=== PATIENT | female | born 1985 | race Caucasian/White ===

== ENCOUNTER → 2016-09-30 | Outpatient (CLI) | payer BC, OTHER ==
[~2016-09-30] MED LIST: /LORA10TA GT; ACET50TA PO; ALPHAGAN P OS; AVELOX PO; BENADRYL; BENADRYL PO; CARA1TAB2 PO; CLEOCIN PO; CO Q100C10 PO; COQ-100C PO; DECADRON PO; DICL10TA PO; DICY20TA11 PO; DOCU10ELUD PO; EXCETAB80 PO; HOMATROPINE OS; HUMI40KI2 SC; IBUP600T26 PO; IBUP80TA PO; LORA10TA2 PO; MAAL600C PO; MAGN400T5 PO; MOTR200T44 PO; OMEPPOW18 PO; PEPC40SU PO; PERC5TAB6 PO; POTA540T PO; PRED FORTE OS; PRENTAB74 PO; PRIL40CA PO; RIBO100C PO; ROBA750T4 PO; SUDA30TA PO; TREX50TA PO; TREXIMET PO; VITA100L PO; VITAPRTA PO; ZITH250T PO; ZYRT10TA2 PO; claritin PO; colace PO; ibuprofen PO; potassium citrate PO
--- NOTE | 2016-09-30 08:37 | REP ---
MRI BRAIN WITHOUT CONTRAST: HISTORY: Migraine headaches. There are no areas of abnormal signal intensity in the brain. There is no intraparenchymal hemorrhage, infarct, mass or midline shift. The ventricular system is normal in appearance. There is no extracerebral collection. Minimal mucosal thickening is present in the right maxillary sinus. IMPRESSION: There is no intracranial lesion. Signed by Easton Harper MD 09/30/2016 08:38 A
== END ==
LOC: M RAD 07:13
PROVIDERS: ATTEND Family Medicine
DX: G43.909 Migraine, unspecified, not intractable, without status migrainosus (principal)

== ENCOUNTER 2016-10-15 12:41 | Emergency (ER) | payer OTHER ==
[2016-10-15] MEDS ORDERED: KETOROLAC 30 MG/ML VIAL (J1885) As Ordered ONE (13:06)
[2016-10-15] MEDS ORDERED: diphenhydrAMINE INJ 50MG/ML VIAL (J1200) As Ordered ONE (13:06)
[2016-10-15] MEDS ORDERED: ONDANSETRON 4MG/2ML VIAL (J2405) As Ordered ONE (13:06)
[2016-10-15] MEDS ORDERED: MORPHINE 4 MG/ML 1ML SYRINGE As Ordered ONE (14:00)
[2016-10-15] MEDS ORDERED: FIORICET TAB As Ordered ONE (14:03)
--- NOTE | 2016-10-15 15:05 | EDDOCDS ---
Nurse's Notes [facility] Name: Carole Faust Age: 31 yrs Sex: Female : 1985 Arrival Date: 10/15/2016 Time: 12:41 Bed 11 Private MD: Elliott Diagnosis: Migraine Presentation: 10/15 12:43 Presenting complaint: Patient states: migraine x 2 days with n/v and light sensitivity kc3 with no relief from Topamax and Maxalt. This patient has no additional risk factors. Adult Sepsis Screening: The patient does not have new or worsening altered mentation. Patient's respiratory rate is less than 22. Systolic blood pressure is greater than 100. Patient has a qSOFA score of 0- Negative Sepsis Screen. Suicide/Homicide risk assessment- the patient denies having any suicidal and/or homicidal ideations and does not present with any other emotional, behavioral or mental health complaints. Status: Patient is not a director of consulting services or dependent. Transition of care: patient was not received from another setting of care. 12:43 Acuity: PAWAN Level 3 kc3 12:43 Method Of Arrival: Walkin/Carried/Asstd kc3 Triage Assessment: 12:47 Headache History: This headache is like all previous headaches. General: Appears kc3 uncomfortable. Pain: Pain currently is 6 out of 10 on a pain scale. Pain began 2-3 days ago Also complains of nausea, photophobia, lightheaded. HIV screening NA for this visit Offered previously. Neurological: Level of Consciousness is awake, alert, obeys commands. 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 Co Q-10 200 mg oral chew twice a day 2. magnesium oxide 400 mg Oral tab daily 3. potassium citrate 5 mEq (540 mg) oral TbER daily 4. Prilosec 40 mg Oral cpDR 1 cap once daily 5. riboflavin (vitamin B2) 200 mg oral tab twice a day 6. Topamax 50 mg Oral tab daily 7. Maxalt oral oral as needed 8. Zoloft 50 mg Oral tab 1 tab once daily 9. Humira 40 mg/0.8 mL subcutaneous sykt every 2 weeks - PMHx: anklysoing spondyliosis; iritis; medullary sponge kindeys; Migraines; - PSHx: ; Tubal ligation (January 25, 2016); Sinus Surgery; Endoscopy, Lower; Endoscopy, Upper; - Social history: Smoking status: Patient states was never smoker of tobacco. No barriers to communication noted, The patient speaks fluent Libyan, Speaks appropriately for age. - : The pt / caregiver states he / she is not on anticoagulants. Home medication list is obtained from the patient. - Exposure Risk Screening:: None identified. Screenin:17 Screening information is obtained from the patient. Fall risk: No risks identified. jjr Assistance ADL's: requires no assistance with activities of daily living. Abuse/DV Screen: The patient / caregiver reports he/she is: not in a situation that causes fear, pain or injury. Nutritional screening: No deficits noted. Advance Directives: There is no active DNR order. home support is adequate. Assessment: 13:21 General: Appears in no apparent distress, well nourished, well groomed, Behavior is jjr appropriate for age. Pain: Location: left frontal area, left side of the back of head, left temporal area and left occipital area. Neurological: No deficits noted. Reports headache. Respiratory: No deficits noted. GI: Reports nausea. Derm: No deficits noted. 14:07 General: Appears in no apparent distress, reports continued pressure 5/10 to left side jjr of head and decreased nausea. 14:35 General: Appears in no apparent distress, pt has developed left anterior chest pressure jjr 3/10 with dull ache to left arm since last medication administration, provider aware , CANALES resolved. 15:02 General: Appears in no apparent distress, Behavior is appropriate for age. jjr Neurological: No deficits noted. Respiratory: No deficits noted. Derm: No deficits noted. Vital Signs: 12:42 BP 158 / 102; Pulse 80; Resp 16; Temp 97.8(O); Pulse Ox 98% on R/A; Weight 86.18 kg lr2 (R); Height 5 ft. 2 in. (157.48 cm) (R); Pain 6/10; 13:52 Pain 5/10; jjr 14:35 BP 136 / 70; Pulse 79; Resp 18; Pulse Ox 99% on R/A; Pain 3/10; jjr 15:01 BP 115 / 68; Pulse 60; Resp 16; Temp 97.8(O); Pulse Ox 99% on R/A; Pain 0/10; jjr 12:42 Body Mass Index 34.75 (86.18 kg, 157.48 cm) lr2 Vitals: 12:42 Log In Time: October 15, 2016 at 12:41. lr2 ED Course: 12:41 Patient visited by Nayely Bell. lr2 12:41 Elliott is Private Physician. lr2 12:41 Patient moved to Waiting lr2 12:42 Patient moved to Pre RCE lr2 12:44 Triage Initiated kc3 12:49 Patient moved to 11 kc3 12:53 [facility] As[facility]. ke 12:53 Patient visited by Chris Asif FNP. ke 12:53 Patient visited by Chris Asif FNP. ke 12:53 Edna Girard, RN is Primary Nurse. jjr 13:17 The patient / caregiver is instructed regarding the plan of care and ED course. jjr 13:17 Inserted saline lock: 20 gauge in left antecubital area. jjr 13:23 Patient visited by Edna Girard RN. jjr 13:53 Patient visited by Chris Asif FNP. ke 14:07 Patient visited by Edna Girard, WILDER. jjr 14:36 Patient visited by Edna Girard, WILDER. jjr 14:43 Elliott is Referral Physician. ke 15:02 Discontinued lock intact, bleeding controlled, pressure dressing applied, No jjr redness/swelling at site. No procedures done that require assistance. Administered Medications: 13:16 Drug: diphenhydrAMINE 50 mg [diphenhydramine 50 mg/mL injection solution (1 mL)] Route: jjr IVP; Site: left antecubital; 13:16 Drug: Ondansetron 4 mg [ondansetron HCl 2 mg/mL intravenous solution (2 mL)] Route: jjr IVP; Site: left antecubital; 13:52 Follow up: Response: Nausea is decreased jjr 13:16 Drug: ketorolac 30 mg [ketorolac 30 mg/mL (1 mL) injection solution (1 mL)] Route: IVP; jjr Site: left antecubital; 13:52 Follow up: Pain 5/10 Adult jjr 13:17 Drug: NS 0.9% 1000 ml [sodium chloride 0.9 % intravenous solution] Route: IV; Rate: jjr bolus; Site: left antecubital; 14:50 Follow up: IV Status: Completed infusion; IV Intake: 800ml jjr 14:07 Drug: Fioricet 1 tab-caps Route: PO; jjr 14:07 Drug: morphine 4 mg [morphine 4 mg/mL intravenous cartridge (1 mL)] Route: IVP; Site: jjr left antecubital; Intake: 14:50 IV: 800.00ml; Total: 800.00ml. jjr Order Results: There are currently no results for this order. Outcome: 14:43 Discharge ordered by Provider. jennifer 15:03 Discharge Assessment: patient administered narcotics - yes. Pt provided with safe jjr discharge. The following High Risk Discharge criteria are identified: None. Discharged to home ambulatory, with family. Condition: stable. Discharge instructions given to patient, Instructed on discharge instructions, follow up and referral plans. Demonstrated understanding of instructions. No special radiology studies were completed. Property sent home with patient. 15:03 Patient left the ED. jjr Signatures: Chris Asif, Edna Alvarez RN Stephanie Kay RN RN Nayely Leal MTDXiomara
--- NOTE | 2016-10-15 15:06 | EDDOCDS ---
Physician Documentation [facility] Name: Carole Faust Age: 31 yrs Sex: Female : 1985 Arrival Date: 10/15/2016 Time: 12:41 Bed 11 Private MD: Elliott Disposition: 10/15/16 14:43 Discharged to Home/Self Care. Impression: Migraine. - Condition is Stable. - Discharge Instructions: Migraine Headache. - Medication Reconciliation, Local Pharmacy Hours form. - Follow up: Elliott; When: As needed; Reason: Continuance of care. - Problem is an acute exacerbation. - Symptoms are unchanged. Historical: - Allergies: no known allergies; - Home Meds: 1. Co Q-10 200 mg oral chew twice a day 2. magnesium oxide 400 mg Oral tab daily 3. potassium citrate 5 mEq (540 mg) oral TbER daily 4. Prilosec 40 mg Oral cpDR 1 cap once daily 5. riboflavin (vitamin B2) 200 mg oral tab twice a day 6. Topamax 50 mg Oral tab daily 7. Maxalt oral oral as needed 8. Zoloft 50 mg Oral tab 1 tab once daily 9. Humira 40 mg/0.8 mL subcutaneous sykt every 2 weeks - PMHx: anklysoing spondyliosis; iritis; medullary sponge kindeys; Migraines; - PSHx: ; Tubal ligation (January 25, 2016); Sinus Surgery; Endoscopy, Lower; Endoscopy, Upper; - Social history: Smoking status: Patient states was never smoker of tobacco. No barriers to communication noted, The patient speaks fluent Cymraes, Speaks appropriately for age. - : The pt / caregiver states he / she is not on anticoagulants. Home medication list is obtained from the patient. - Exposure Risk Screening:: None identified. 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 2 in. (157.48 cm) (R); Pain 6/10; 13:52 Pain 5/10; jjr 14:35 BP 136 / 70; Pulse 79; Resp 18; Pulse Ox 99% on R/A; Pain 3/10; jjr 15:01 BP 115 / 68; Pulse 60; Resp 16; Temp 97.8(O); Pulse Ox 99% on R/A; Pain 0/10; jjr 12:42 Body Mass Index 34.75 (86.18 kg, 157.48 cm) lr2 MDM: 12:57 NS 0.9% 1000 ml IV at bolus once ordered. ke 12:57 IV Saline Lock ordered. ke 12:57 diphenhydrAMINE 50 mg IVP once ordered. ke 12:57 Ondansetron 4 mg IVP once ordered. ke 12:57 ketorolac 30 mg IVP once ordered. ke 13:53 Fioricet 1 tab-caps PO once ordered. ke 13:54 morphine 4 mg IVP once ordered. ke 13:58 Financial registration complete. lg Administered Medications: 13:16 Drug: diphenhydrAMINE 50 mg [diphenhydramine 50 mg/mL injection solution (1 mL)] Route: jjr IVP; Site: left antecubital; 13:16 Drug: Ondansetron 4 mg [ondansetron HCl 2 mg/mL intravenous solution (2 mL)] Route: jjr IVP; Site: left antecubital; 13:52 Follow up: Response: Nausea is decreased jjr 13:16 Drug: ketorolac 30 mg [ketorolac 30 mg/mL (1 mL) injection solution (1 mL)] Route: IVP; jjr Site: left antecubital; 13:52 Follow up: Pain 5/10 Adult jjr 13:17 Drug: NS 0.9% 1000 ml [sodium chloride 0.9 % intravenous solution] Route: IV; Rate: jjr bolus; Site: left antecubital; 14:50 Follow up: IV Status: Completed infusion; IV Intake: 800ml jjr 14:07 Drug: Fioricet 1 tab-caps Route: PO; jjr 14:07 Drug: morphine 4 mg [morphine 4 mg/mL intravenous cartridge (1 mL)] Route: IVP; Site: jjr left antecubital; Signatures: Elmer Black, Miguel Ángel Reg Chris Saini, AUTOMOTIVE PARTS INTERPRETER AUTOMOTIVE PARTS INTERPRETER Edna Turcios, RN RN jjr Stephanie Yu,RN RN kc3 BONNIE
--- NOTE | 2016-10-17 16:04 | EDDOCDS ---
Physician Documentation [facility] Name: Carole Faust Age: 31 yrs Sex: Female : 1985 Arrival Date: 10/15/2016 Time: 12:41 Bed 11 Private MD: Elliott Disposition: 10/15/16 14:43 Discharged to Home/Self Care. Impression: Migraine. - Condition is Stable. - Discharge Instructions: Migraine Headache. - Medication Reconciliation, Local Pharmacy Hours form. - Follow up: Elliott; When: As needed; Reason: Continuance of care. - Problem is an acute exacerbation. - Symptoms are unchanged. Historical: - Allergies: no known allergies; - Home Meds: 1. Co Q-10 200 mg oral chew twice a day 2. magnesium oxide 400 mg Oral tab daily 3. potassium citrate 5 mEq (540 mg) oral TbER daily 4. Prilosec 40 mg Oral cpDR 1 cap once daily 5. riboflavin (vitamin B2) 200 mg oral tab twice a day 6. Topamax 50 mg Oral tab daily 7. Maxalt oral oral as needed 8. Zoloft 50 mg Oral tab 1 tab once daily 9. Humira 40 mg/0.8 mL subcutaneous sykt every 2 weeks - PMHx: anklysoing spondyliosis; iritis; medullary sponge kindeys; Migraines; - PSHx: ; Tubal ligation (January 25, 2016); Sinus Surgery; Endoscopy, Lower; Endoscopy, Upper; - Social history: Smoking status: Patient states was never smoker of tobacco. No barriers to communication noted, The patient speaks fluent Cypriot, Speaks appropriately for age. - : The pt / caregiver states he / she is not on anticoagulants. Home medication list is obtained from the patient. - Exposure Risk Screening:: None identified. 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 2 in. (157.48 cm) (R); Pain 6/10; 13:52 Pain 5/10; jjr 14:35 BP 136 / 70; Pulse 79; Resp 18; Pulse Ox 99% on R/A; Pain 3/10; jjr 15:01 BP 115 / 68; Pulse 60; Resp 16; Temp 97.8(O); Pulse Ox 99% on R/A; Pain 0/10; jjr 12:42 Body Mass Index 34.75 (86.18 kg, 157.48 cm) lr2 MDM: 12:57 NS 0.9% 1000 ml IV at bolus once ordered. ke 12:57 IV Saline Lock ordered. ke 12:57 diphenhydrAMINE 50 mg IVP once ordered. ke 12:57 Ondansetron 4 mg IVP once ordered. ke 12:57 ketorolac 30 mg IVP once ordered. ke 13:53 Fioricet 1 tab-caps PO once ordered. ke 13:54 morphine 4 mg IVP once ordered. ke 13:58 Financial registration complete. lg 15:09 [facility] Payment Agreement was scanned into RedT and attached to record. lg 10/16 09:44 T-Sheet-- Draft Copy was scanned into RedT and attached to record. [facility] Administered Medications: 10/15 13:16 Drug: diphenhydrAMINE 50 mg [diphenhydramine 50 mg/mL injection solution (1 mL)] Route: jjr IVP; Site: left antecubital; 13:16 Drug: Ondansetron 4 mg [ondansetron HCl 2 mg/mL intravenous solution (2 mL)] Route: jjr IVP; Site: left antecubital; 13:52 Follow up: Response: Nausea is decreased jjr 13:16 Drug: ketorolac 30 mg [ketorolac 30 mg/mL (1 mL) injection solution (1 mL)] Route: IVP; jjr Site: left antecubital; 13:52 Follow up: Pain 5/10 Adult jjr 13:17 Drug: NS 0.9% 1000 ml [sodium chloride 0.9 % intravenous solution] Route: IV; Rate: jjr bolus; Site: left antecubital; 14:50 Follow up: IV Status: Completed infusion; IV Intake: 800ml jjr 14:07 Drug: Fioricet 1 tab-caps Route: PO; jjr 14:07 Drug: morphine 4 mg [morphine 4 mg/mL intravenous cartridge (1 mL)] Route: IVP; Site: jjr left antecubital; Signatures: Elmer Black, Miguel Ángel Reg lg Chris Asif, MOHSEN TONGP Edna Turcios RN RN jStephanie Vale RN RN kc3 Julianna Loyd The chart was reviewed and I authenticate all verbal orders and agree with the evaluation and treatment provided.Attachments: 15:09 [facility] Payment Agreement 10/16 09:44 T-Sheet-- Draft Copy [facility] [place] Chart Complete MTDD
--- NOTE | 2016-10-17 16:05 | EDDOCDS ---
Nurse's Notes [facility] Name: Carole Faust Age: 31 yrs Sex: Female : 1985 Arrival Date: 10/15/2016 Time: 12:41 Bed 11 Private MD: Elliott Diagnosis: Migraine Presentation: 10/15 12:43 Presenting complaint: Patient states: migraine x 2 days with n/v and light sensitivity kc3 with no relief from Topamax and Maxalt. This patient has no additional risk factors. Adult Sepsis Screening: The patient does not have new or worsening altered mentation. Patient's respiratory rate is less than 22. Systolic blood pressure is greater than 100. Patient has a qSOFA score of 0- Negative Sepsis Screen. Suicide/Homicide risk assessment- the patient denies having any suicidal and/or homicidal ideations and does not present with any other emotional, behavioral or mental health complaints. 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 Transition of care: patient was not received from another setting of care. 12:43 Acuity: PAWAN Level 3 kc3 12:43 Method Of Arrival: Walkin/Carried/Asstd kc3 Triage Assessment: 12:47 Headache History: This headache is like all previous headaches. General: Appears kc3 uncomfortable. Pain: Pain currently is 6 out of 10 on a pain scale. Pain began 2-3 days ago Also complains of nausea, photophobia, lightheaded. HIV screening NA for this visit Offered previously. Neurological: Level of Consciousness is awake, alert, obeys commands. 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 Co Q-10 200 mg oral chew twice a day 2. magnesium oxide 400 mg Oral tab daily 3. potassium citrate 5 mEq (540 mg) oral TbER daily 4. Prilosec 40 mg Oral cpDR 1 cap once daily 5. riboflavin (vitamin B2) 200 mg oral tab twice a day 6. Topamax 50 mg Oral tab daily 7. Maxalt oral oral as needed 8. Zoloft 50 mg Oral tab 1 tab once daily 9. Humira 40 mg/0.8 mL subcutaneous sykt every 2 weeks - PMHx: anklysoing spondyliosis; iritis; medullary sponge kindeys; Migraines; - PSHx: ; Tubal ligation (January 25, 2016); Sinus Surgery; Endoscopy, Lower; Endoscopy, Upper; - Social history: Smoking status: Patient states was never smoker of tobacco. No barriers to communication noted, The patient speaks fluent Zimbabwean, Speaks appropriately for age. - : The pt / caregiver states he / she is not on anticoagulants. Home medication list is obtained from the patient. - Exposure Risk Screening:: None identified. Screenin:17 Screening information is obtained from the patient. Fall risk: No risks identified. jjr Assistance ADL's: requires no assistance with activities of daily living. Abuse/DV Screen: The patient / caregiver reports he/she is: not in a situation that causes fear, pain or injury. Nutritional screening: No deficits noted. Advance Directives: There is no active DNR order. home support is adequate. Assessment: 13:21 General: Appears in no apparent distress, well nourished, well groomed, Behavior is jjr appropriate for age. Pain: Location: left frontal area, left side of the back of head, left temporal area and left occipital area. Neurological: No deficits noted. Reports headache. Respiratory: No deficits noted. GI: Reports nausea. Derm: No deficits noted. 14:07 General: Appears in no apparent distress, reports continued pressure 5/10 to left side jjr of head and decreased nausea. 14:35 General: Appears in no apparent distress, pt has developed left anterior chest pressure jjr 3/10 with dull ache to left arm since last medication administration, provider aware , CANALES resolved. 15:02 General: Appears in no apparent distress, Behavior is appropriate for age. jjr Neurological: No deficits noted. Respiratory: No deficits noted. Derm: No deficits noted. Vital Signs: 12:42 BP 158 / 102; Pulse 80; Resp 16; Temp 97.8(O); Pulse Ox 98% on R/A; Weight 86.18 kg lr2 (R); Height 5 ft. 2 in. (157.48 cm) (R); Pain 6/10; 13:52 Pain 5/10; jjr 14:35 BP 136 / 70; Pulse 79; Resp 18; Pulse Ox 99% on R/A; Pain 3/10; jjr 15:01 BP 115 / 68; Pulse 60; Resp 16; Temp 97.8(O); Pulse Ox 99% on R/A; Pain 0/10; jjr 12:42 Body Mass Index 34.75 (86.18 kg, 157.48 cm) lr2 Vitals: 12:42 Log In Time: October 15, 2016 at 12:41. lr2 ED Course: 12:41 Patient visited by Nayely Bell. lr2 12:41 Elliott is Private Physician. lr2 12:41 Patient moved to Waiting lr2 12:42 Patient moved to Pre RCE lr2 12:44 Triage Initiated kc3 12:49 Patient moved to 11 kc3 12:53 Chris Asif FNP is [facility]. ke 12:53 Patient visited by Chris Asif FNP. ke 12:53 Patient visited by Chris Asif FNP. ke 12:53 Edna Girard, RN is Primary Nurse. jjr 13:17 The patient / caregiver is instructed regarding the plan of care and ED course. jjr 13:17 Inserted saline lock: 20 gauge in left antecubital area. jjr 13:23 Patient visited by Edna Girard RN. jjr 13:53 Patient visited by Chris Asif FNP. ke 14:07 Patient visited by Edna Girard, WILDER. jjr 14:36 Patient visited by Edna Girard, WILDER. jjr 14:43 Elliott is Referral Physician. ke 15:02 Discontinued lock intact, bleeding controlled, pressure dressing applied, No jjr redness/swelling at site. No procedures done that require assistance. 15:09 [facility] Payment Agreement was scanned into XDC and attached to record. 10/16 09:44 T-Sheet-- Draft Copy was scanned into XDC and attached to record. [facility] Administered Medications: 10/15 13:16 Drug: diphenhydrAMINE 50 mg [diphenhydramine 50 mg/mL injection solution (1 mL)] Route: jjr IVP; Site: left antecubital; 13:16 Drug: Ondansetron 4 mg [ondansetron HCl 2 mg/mL intravenous solution (2 mL)] Route: jjr IVP; Site: left antecubital; 13:52 Follow up: Response: Nausea is decreased jjr 13:16 Drug: ketorolac 30 mg [ketorolac 30 mg/mL (1 mL) injection solution (1 mL)] Route: IVP; jjr Site: left antecubital; 13:52 Follow up: Pain 5/10 Adult jjr 13:17 Drug: NS 0.9% 1000 ml [sodium chloride 0.9 % intravenous solution] Route: IV; Rate: jjr bolus; Site: left antecubital; 14:50 Follow up: IV Status: Completed infusion; IV Intake: 800ml jjr 14:07 Drug: Fioricet 1 tab-caps Route: PO; jjr 14:07 Drug: morphine 4 mg [morphine 4 mg/mL intravenous cartridge (1 mL)] Route: IVP; Site: jjr left antecubital; Intake: 14:50 IV: 800.00ml; Total: 800.00ml. jjr Order Results: There are currently no results for this order. Outcome: 14:43 Discharge ordered by Provider. jennifer 15:03 Discharge Assessment: patient administered narcotics - yes. Pt provided with safe jjr discharge. The following High Risk Discharge criteria are identified: None. Discharged to home ambulatory, with family. Condition: stable. Discharge instructions given to patient, Instructed on discharge instructions, follow up and referral plans. Demonstrated understanding of instructions. No special radiology studies were completed. Property sent home with patient. 15:03 Patient left the ED. jjr Signatures: Elmer Black, Chris Dodson lg, VP SOFTWARE VP SOFTWARE Edna Turcios RN RN jjr Crane, Kelsi, RN RN [email or web address] Evert, Nayely Chatterjee Chart Complete MTDD
--- NOTE | 2016-10-17 16:05 | EDDOCDS ---
Physician Documentation [facility] Name: Carole Faust Age: 31 yrs Sex: Female : 1985 Arrival Date: 10/15/2016 Time: 12:41 Bed 11 Private MD: Elliott Disposition: 10/15/16 14:43 Discharged to Home/Self Care. Impression: Migraine. - Condition is Stable. - Discharge Instructions: Migraine Headache. - Medication Reconciliation, Local Pharmacy Hours form. - Follow up: Elliott; When: As needed; Reason: Continuance of care. - Problem is an acute exacerbation. - Symptoms are unchanged. Historical: - Allergies: no known allergies; - Home Meds: 1. Co Q-10 200 mg oral chew twice a day 2. magnesium oxide 400 mg Oral tab daily 3. potassium citrate 5 mEq (540 mg) oral TbER daily 4. Prilosec 40 mg Oral cpDR 1 cap once daily 5. riboflavin (vitamin B2) 200 mg oral tab twice a day 6. Topamax 50 mg Oral tab daily 7. Maxalt oral oral as needed 8. Zoloft 50 mg Oral tab 1 tab once daily 9. Humira 40 mg/0.8 mL subcutaneous sykt every 2 weeks - PMHx: anklysoing spondyliosis; iritis; medullary sponge kindeys; Migraines; - PSHx: ; Tubal ligation (January 25, 2016); Sinus Surgery; Endoscopy, Lower; Endoscopy, Upper; - Social history: Smoking status: Patient states was never smoker of tobacco. No barriers to communication noted, The patient speaks fluent Salvadorean, Speaks appropriately for age. - : The pt / caregiver states he / she is not on anticoagulants. Home medication list is obtained from the patient. - Exposure Risk Screening:: None identified. DIVER PUMPER: 10/15 12:48 LMP 10/07/2016 [id number] Vital Signs: 12:42 BP 158 / 102; Pulse 80; Resp 16; Temp 97.8(O); Pulse Ox 98% on R/A; Weight 86.18 kg / lr2 189.99 lbs (R); Height 5 ft. 2 in. (157.48 cm) (R); Pain 6/10; 13:52 Pain 5/10; jjr 14:35 BP 136 / 70; Pulse 79; Resp 18; Pulse Ox 99% on R/A; Pain 3/10; jjr 15:01 BP 115 / 68; Pulse 60; Resp 16; Temp 97.8(O); Pulse Ox 99% on R/A; Pain 0/10; jjr 12:42 Body Mass Index 34.75 (86.18 kg, 157.48 cm) lr2 MDM: 12:57 NS 0.9% 1000 ml IV at bolus once ordered. ke 12:57 IV Saline Lock ordered. ke 12:57 diphenhydrAMINE 50 mg IVP once ordered. ke 12:57 Ondansetron 4 mg IVP once ordered. ke 12:57 ketorolac 30 mg IVP once ordered. ke 13:53 Fioricet 1 tab-caps PO once ordered. ke 13:54 morphine 4 mg IVP once ordered. ke 13:58 Financial registration complete. lg 15:09 [facility] Payment Agreement was scanned into [employer] and attached to record. lg 10/16 09:44 T-Sheet-- Draft Copy was scanned into [employer] and attached to record. [facility] Administered Medications: 10/15 13:16 Drug: diphenhydrAMINE 50 mg [diphenhydramine 50 mg/mL injection solution (1 mL)] Route: jjr IVP; Site: left antecubital; 13:16 Drug: Ondansetron 4 mg [ondansetron HCl 2 mg/mL intravenous solution (2 mL)] Route: jjr IVP; Site: left antecubital; 13:52 Follow up: Response: Nausea is decreased jjr 13:16 Drug: ketorolac 30 mg [ketorolac 30 mg/mL (1 mL) injection solution (1 mL)] Route: IVP; jjr Site: left antecubital; 13:52 Follow up: Pain 5/10 Adult jjr 13:17 Drug: NS 0.9% 1000 ml [sodium chloride 0.9 % intravenous solution] Route: IV; Rate: jjr bolus; Site: left antecubital; 14:50 Follow up: IV Status: Completed infusion; IV Intake: 800ml jjr 14:07 Drug: Fioricet 1 tab-caps Route: PO; jjr 14:07 Drug: morphine 4 mg [morphine 4 mg/mL intravenous cartridge (1 mL)] Route: IVP; Site: jjr left antecubital; Signatures: Elmer Black, Miguel Ángel Reg lg Chris Asif, MOHSEN TONGP Edna Turcios RN RN jStephanie Vale RN RN [id number] Julianna Loyd The chart was reviewed and I authenticate all verbal orders and agree with the evaluation and treatment provided.Attachments: 15:09 [facility] Payment Agreement 10/16 09:44 T-Sheet-- Draft Copy [facility] Chart Complete MTDD
== END 2016-10-15 15:03 | disposition home or self-care (01) ==
LOC: M ED 12:41
DX: G43.909 Migraine, unspecified, not intractable, without status migrainosus (principal); M45.9 Ankylosing spondylitis of unspecified sites in spine; H20.9 Unspecified iridocyclitis; Q61.5 Medullary cystic kidney; Z79.899 Other long term (current) drug therapy
CPT/HCPCS: 96361; 96374; 96375; 99283; J1200; J1885; J2405

== ENCOUNTER 2016-11-07 09:23 | Emergency (ER) | payer OTHER ==
[~2016-11-07] VITALS: Ht 157.5 cm; Wt 88.5 kg
[2016-11-07] MEDS ORDERED: RIZA10TA2 PO (09:33)
[2016-11-07] MEDS ORDERED: TOPI1CAP4 PO (09:33)
[2016-11-07] MEDS ORDERED: OMEP40CA2 PO (09:33)
[2016-11-07] MEDS ORDERED: MECLIZINE 25 MG TABLET PO ONE (10:00)
[2016-11-07] MEDS ORDERED: NS 1,000 ML IV ONE (10:00)
[2016-11-07] MEDS ORDERED: ONDANSETRON 4MG/2ML VIAL (J2405) IV ONE ×2 (10:00→11:45)
[2016-11-07 10:21] LABS: BASO % 0.3 % (0.0-1.0); EOS # 0.1 K/mm3 (0.0-0.50); EOS % 2.2 % (0.0-3.0); LARGE UNSTAINED CELL # 0.1 K/mm3 (0.0-0.4); LARGE UNSTAINED CELL % 2.2 % (0.0-4.0); LYMPH # 1.5 K/mm3 (1.5-4.5); LYMPH % 29.2 % (24.0-44.0); MEAN CORPUSCULAR HEMOGLOBIN 27.5 pg (27.0-33.0); MEAN CORPUSCULAR HGB CONC 32.8 g/dl (32.0-36.5); MEAN CORPUSCULAR VOLUME 83.8 fl (80.0-96.0); MONO # 0.3 K/mm3 (0.0-0.8); MONO % 6.1 % (0.0-5.0); NEUTROPHILS % 60.1 % (36.0-66.0); PLATELET COUNT, AUTOMATED 319 k/mm3 (150-450); RED CELL DISTRIBUTION WIDTH 13.1 % (11.5-14.5); WHITE BLOOD COUNT 4.9 K/mm3 (4.0-10.0)
[2016-11-07 10:47] LABS: CONTROL LINE UCG INT CTR LINE PRESENT
[2016-11-07 10:47] LABS: ALBUMIN 3.5 GM/DL (3.2-5.2); ALBUMIN/GLOBULIN RATIO 0.92 (1.00-1.93); ALKALINE PHOSPHATASE 80 U/L (45-117); ALT/SGPT 33 U/L (12-78); ANION GAP 5 MEQ/L (8-16); AST/SGOT 15 U/L (15-37); BILIRUBIN,DIRECT < 0.1 MG/DL (0.0-0.2); BILIRUBIN,TOTAL 0.4 MG/DL (0.2-1.0); BLOOD UREA NITROGEN 16 MG/DL (7-18); CALCIUM LEVEL 8.2 MG/DL (8.5-10.1); CARBON DIOXIDE LEVEL 27 MEQ/L (21-32); CHLORIDE LEVEL 108 MEQ/L (98-107); CREATININE FOR GFR 0.68 MG/DL (0.55-1.02); GLOMERULAR FILTRATION RATE > 60.0 (>60); GLUCOSE, FASTING 86 MG/DL (70-105); POTASSIUM SERUM 3.9 MEQ/L (3.5-5.1); SODIUM LEVEL 140 MEQ/L (136-145); TOTAL PROTEIN 7.3 GM/DL (6.4-8.2)
--- NOTE | 2016-11-07 11:33 | REP ---
Clinical: Trauma. Technique: AP, lateral, bilateral oblique and sunrise views left knee. Findings: The osseous structures and joint spaces are intact and normal. There is no evidence for acute fracture or dislocation. No joint effusion is appreciated. Surrounding soft tissues are unremarkable. No subcutaneous emphysema or radiodense foreign body. Impression: No acute fracture or dislocation. Signed by Sourav Aponte MD 11/07/2016 11:24 A
--- NOTE | 2016-11-07 11:34 | REP ---
CT Head without contrast HISTORY: Syncope COMPARISON: 10/19/2010 There is no intraparenchymal hemorrhage, acute infarct, mass or midline shift. The ventricular system is normal in appearance. There is no extra cerebral collection. There is no fracture. Minimal mucosal thickening is present in the right ethmoid sinus. IMPRESSION: There is no intracranial lesion. Signed by Easton Harper MD 11/07/2016 11:26 A
[2016-11-07] MEDS ORDERED: diazePAM 5 MG TAB PO ONE (11:45)
[2016-11-07] MEDS ORDERED: VALI5TAB PO (12:12)
[2016-11-07] MEDS ORDERED: ZOFR4TAB3 PO (12:14)
[2016-11-07] MEDS ORDERED: MECL25CH PO (12:14)
[2016-11-07] MEDS ORDERED: AUGM875T27 PO (12:14)
[2016-11-07] MEDS ORDERED: AUGMENTIN 875 MG TAB PO ONE (12:15)
[2016-11-07 12:23] VITALS: BP 114/72
== END 2016-11-07 12:24 | disposition home or self-care (01) ==
LOC: M ED 10:03
DX: R55 Syncope and collapse (principal); R42 Dizziness and giddiness; H66.91 Otitis media, unspecified, right ear; G43.909 Migraine, unspecified, not intractable, without status migrainosus; I35.1 Nonrheumatic aortic (valve) insufficiency; K57.90 Diverticulosis of intestine, part unspecified, without perforation or abscess without bleeding; F41.9 Anxiety disorder, unspecified; F32.9 Major depressive disorder, single episode, unspecified; Q61.5 Medullary cystic kidney; H20.9 Unspecified iridocyclitis; M25.562 Pain in left knee; J30.9 Allergic rhinitis, unspecified; Z79.899 Other long term (current) drug therapy
CPT/HCPCS: 70450; 73564; 80048; 80076; 81001; 84703; 85025; 96361; 96374; 96376; 99284; J2405

== ENCOUNTER 2016-12-20 17:26 | Emergency (ER) | payer OTHER ==
[~2016-12-20] VITALS: Ht 157.5 cm; Wt 89.4 kg
[~2016-12-20 17:26] MED LIST changes: +AUGM875T27 PO; +MECL25CH PO; +OMEP40CA2 PO; +RIZA10TA2 PO; +TOPI1CAP4 PO; +VALI5TAB PO; +ZOFR4TAB3 PO
[2016-12-20] MEDS ORDERED: SERT-155 (17:35)
[2016-12-20] MEDS ORDERED: KETOROLAC 30 MG/ML VIAL (J1885) IV ONE (18:00)
[2016-12-20] MEDS ORDERED: NS 1,000 ML IV ONE (18:00)
[2016-12-20] MEDS ORDERED: ONDANSETRON 4MG/2ML VIAL (J2405) IV ONE (18:00)
[2016-12-20] MEDS ORDERED: TAMSULOSIN 0.4 MG CAP PO ONE (18:00)
[2016-12-20] MEDS: MORPHINE 2 MG/ML 1ML SYRINGE IV PRN ×2 (18:17→19:25)
[2016-12-20 18:20] LABS: BASO % 0.8 % (0.0-1.0); EOS # 0.2 K/mm3 (0.0-0.50); EOS % 2.5 % (0.0-3.0); LARGE UNSTAINED CELL # 0.2 K/mm3 (0.0-0.4); LARGE UNSTAINED CELL % 2.4 % (0.0-4.0); LYMPH # 1.8 K/mm3 (1.5-4.5); LYMPH % 26.9 % (24.0-44.0); MEAN CORPUSCULAR HEMOGLOBIN 27.3 pg (27.0-33.0); MEAN CORPUSCULAR HGB CONC 32.7 g/dl (32.0-36.5); MEAN CORPUSCULAR VOLUME 83.4 fl (80.0-96.0); MONO # 0.5 K/mm3 (0.0-0.8); MONO % 7.5 % (0.0-5.0); NEUTROPHILS # 3.8 K/mm3 (1.8-7.7); PLATELET COUNT, AUTOMATED 385 k/mm3 (150-450); RED CELL DISTRIBUTION WIDTH 13.4 % (11.5-14.5); WHITE BLOOD COUNT 6.3 K/mm3 (4.0-10.0)
--- NOTE | 2016-12-20 19:00 | REPUSA ---
Clinical history: Renal failure. Findings: The urinary bladder appears unremarkable. No urinary bladder masses are seen. The right kid davide measures 10.1 x 5.1 x 4.4 cm. The left kidney measures 10.9 x 5.4 x 5.1 cm. The kidneys demonst rate grossing normal echotexture and echogenicity. There is no evidence of hydronephrosis or nephrol ithiasis. No renal masses are seen. No free fluid is appreciated. Impression: Unremarkable ultrasound examination of the kidneys. Findings are grossly consistent with the CT examination of 03/26/2016.
[2016-12-20 19:06] LABS: ALBUMIN 3.6 GM/DL (3.2-5.2); ALBUMIN/GLOBULIN RATIO 1.06 (1.00-1.93); ALKALINE PHOSPHATASE 99 U/L (45-117); ALT/SGPT 57 U/L (12-78); ANION GAP 7 MEQ/L (8-16); AST/SGOT 46 U/L (15-37); BILIRUBIN,DIRECT 0.1 MG/DL (0.0-0.2); BILIRUBIN,TOTAL 0.3 MG/DL (0.2-1.0); BLOOD UREA NITROGEN 15 MG/DL (7-18); CALCIUM LEVEL 8.2 MG/DL (8.5-10.1); CARBON DIOXIDE LEVEL 25 MEQ/L (21-32); CHLORIDE LEVEL 106 MEQ/L (98-107); CREATININE FOR GFR 0.62 MG/DL (0.55-1.02); GLOMERULAR FILTRATION RATE > 60.0 (>60); GLUCOSE, FASTING 95 MG/DL (70-105); POTASSIUM SERUM 4.1 MEQ/L (3.5-5.1); SODIUM LEVEL 138 MEQ/L (136-145)
[2016-12-20] MEDS ORDERED: ISOVUE-370 76% 100ML VIAL (Q9967) As Ordered ONE (19:17)
--- NOTE | 2016-12-20 20:10 | REPUSA ---
CT of the abdomen and pelvis with contrast Clinical statement: Pain. Technique: Multiple axial CT images were obtained from the base of the lungs through the floor of the pelvis utilizing 5 mm axial slices after administration of oral and nonionic intravenous contrast. C oronal and sagittal reconstructions were also obtained. Comparison: 03/26/2016. Findings: Chest: The visualized lung bases are clear. Abdomen: The liver, spleen, pancreas, kidneys, gallbladder, and adrenal glands are unremarkable. The aorta is within normal limits. There is no evidence of abdominal lymphadenopathy or ascites. Pelvis: The bowel is unremarkable, with no obstructive or inflammatory changes. The appendix is krishna l. The urinary bladder is within normal limits. There is a simple right ovarian cyst measuring 2.0 x 2.5 cm. The other pelvic structures appear grossly intact. There is no evidence of pelvic lymphadenop athy or ascites. Bones: There are no suspicious osseous abnormalities seen. Impression: Simple right ovarian cyst. Otherwise unremarkable CT examination of the abdomen and pelvi s.
[2016-12-20 20:18] VITALS: BP 127/88
== END 2016-12-20 20:29 | disposition home or self-care (01) ==
LOC: M ED 17:50
DX: S39.012A Strain of muscle, fascia and tendon of lower back, initial encounter (principal); N83.291 Other ovarian cyst, right side; Z87.442 Personal history of urinary calculi; Q61.5 Medullary cystic kidney; J30.2 Other seasonal allergic rhinitis; Z79.899 Other long term (current) drug therapy
CPT/HCPCS: 74177; 76775; 80048; 80076; 81001; 83690; 85025; 96374; 96375; 99282; J1885; J2405; Q9967

== ENCOUNTER 2017-03-15 09:31 | Inpatient (IN) | payer BC, OTHER ==
[~2017-03-15] VITALS: Ht 157.5 cm; Wt 90.9 kg
[~2017-03-15 09:31] MED LIST changes: -AUGM875T27 PO; +AUGM875T28 PO; -CARA1TAB2 PO; +CARA1TAB6 PO; +IBUP-1022 PO; -IBUP600T26 PO; +MECL1CHW2 PO; -MECL25CH PO; +PERC5TAB12 PO; -PERC5TAB6 PO; +SERT-155
[2017-03-15] MEDS ORDERED: ZOLO100T PO (09:50)
[2017-03-15] MEDS ORDERED: IBUP80TA PO (09:50)
[2017-03-15] MEDS ORDERED: ROBA750T4 PO (09:50)
[2017-03-15] MEDS ORDERED: ONDANSETRON 4MG/2ML VIAL (J2405) IV ONE (10:30)
[2017-03-15] MEDS: MORPHINE 4 MG/ML 1ML SYRINGE IV PRN ×2 (10:34→11:54)
[2017-03-15 10:39] LABS: BASO % 0.5 % (0.0-1.0); EOS # 0.1 K/mm3 (0.0-0.50); EOS % 2.5 % (0.0-3.0); LARGE UNSTAINED CELL # 0.1 K/mm3 (0.0-0.4); LYMPH # 1.3 K/mm3 (1.5-4.5); LYMPH % 28.3 % (24.0-44.0); MEAN CORPUSCULAR HEMOGLOBIN 28.4 pg (27.0-33.0); MEAN CORPUSCULAR HGB CONC 34.1 g/dl (32.0-36.5); MEAN CORPUSCULAR VOLUME 83.2 fl (80.0-96.0); MONO # 0.3 K/mm3 (0.0-0.8); MONO % 6.2 % (0.0-5.0); NEUTROPHILS # 2.5 K/mm3 (1.8-7.7); NEUTROPHILS % 60.4 % (36.0-66.0); PLATELET COUNT, AUTOMATED 319 k/mm3 (150-450); RED CELL DISTRIBUTION WIDTH 13.2 % (11.5-14.5); WHITE BLOOD COUNT 4.2 K/mm3 (4.0-10.0)
[2017-03-15 10:56] LABS: CONTROL LINE HCG INT CTR LINE PRESENT
[2017-03-15 11:00] LABS: ANION GAP 6 MEQ/L (8-16); BLOOD UREA NITROGEN 12 MG/DL (7-18); CALCIUM LEVEL 8.5 MG/DL (8.5-10.1); CARBON DIOXIDE LEVEL 24 MEQ/L (21-32); CHLORIDE LEVEL 103 MEQ/L (98-107); CREATININE FOR GFR 0.73 MG/DL (0.55-1.02); GLOMERULAR FILTRATION RATE > 60.0 (>60); GLUCOSE, FASTING 86 MG/DL (70-105); POTASSIUM SERUM 3.8 MEQ/L (3.5-5.1); SODIUM LEVEL 133 MEQ/L (136-145)
[2017-03-15 11:09] LABS: ERYTHROCYTE SEDIMENTATION RATE 10 mm/hr (0-20)
[2017-03-15] MEDS ORDERED: KETOROLAC 30 MG/ML VIAL (J1885) IV ONE (12:30)
[2017-03-15] MEDS ORDERED: MORPHINE 4 MG/ML 1ML SYRINGE IV ONE (14:30)
[2017-03-15] MEDS ORDERED: NORCO, ANEXSIA 5/325MG TABLET (HYDROcodone/ACETAMINOPHEN) PO ONE (16:45)
--- NOTE | 2017-03-15 17:57 | REP ---
HISTORY: Urinary incontinence with back pain. There are no prior lumbar spine MRIs for comparison. Vertebral body height is normal. There is slight loss of disc hydrational signal and posterior disc space height at L5-S1 with all remaining discs being well hydrated and of normal appearing height throughout. The marrow signal is normal. There is no abnormal signal seen in the imaged portion of the spinal cord. The conus ends at L1. At L1-2 level there is no abnormality. There is no disc herniation, foraminal narrowing or central canal stenosis. At the L2-3 level, there is no abnormality. There is no disc herniation, foraminal narrowing or central canal stenosis. At the L3-4 level, there is no abnormality. There is no disc herniation, foraminal narrowing or central canal stenosis. At the L4-5 level, there is no abnormality. There is no disc herniation, foraminal narrowing or central canal stenosis. At the L5-S1 level, there is a slight broad-based annular bulge. There is no disc herniation, foraminal narrowing or central canal stenosis. IMPRESSION: Slight L5-S1 discogenic changes as described above. The examination is otherwise unremarkable. Signed by Sumit Carmen DO 03/16/2017 10:14 A
[2017-03-15] MEDS ORDERED: METAL LOCK LOOP XX ONE (18:18)
[2017-03-15] MEDS ORDERED: zolPIDEM TARTRATE 5 MG TAB PO PRN ×2 (20:30→20:45)
[2017-03-15] MEDS ORDERED: MORPHINE 2 MG/ML 1ML SYRINGE IV PRN (20:30)
[2017-03-15] MEDS ORDERED: DICY20TA PO (20:31)
[2017-03-15] MEDS ORDERED: TOPI50TA9 PO (20:31)
[2017-03-15] MEDS ORDERED: AMBI5TAB PO (20:31)
[2017-03-15] MEDS ORDERED: IBUPROFEN 800 MG TAB PO PRN (20:45)
[2017-03-15] MEDS ORDERED: RIZATRIPTAN BENZOATE 10 MG TAB PO PRN (20:45)
[2017-03-15] MEDS: PERCOCET 5MG/325MG TAB PO PRN (20:48)
[2017-03-15] MEDS: CARISOPRODOL 350 MG TAB PO SCH (20:48)
--- NOTE | 2017-03-15 22:03 | HPE ---
DATE OF ADMISSION: 03/15/2017 PRIMARY CARE PROVIDER: Dr. Gallagher ATTENDING PHYSICIAN: Dr. DUGGAN CHIEF COMPLAINT: Intractable lower back pain. HISTORY OF PRESENT ILLNESS: The patient is a 31-year-old white female with history of chronic lower back pain due to ankylosing spondylitis who presented to the emergency room (ER) due to intractable lower back pain. History is provided by herself as well as by review of chart. Per patient, she was diagnosed with ankylosing spondylitis in 2011. Since then, she is following up with potato seed cutter. She usually takes ibuprofen for chronic lower back pain and did not take any narcotics. In the last 2 days, she states she has worsening pain, which is persistent, located in her lower back. No radiation. The worst pain is about 9/10. It is a burning pain. Any movement makes pain worse. She also feels heaviness in her bilateral lower extremities. She lost her urine control twice at home. there is no injury prior to this.Today she even cannot move around and decided to come to the ER for further evaluation. In the ER, she underwent the MRI of her lumbar spine, which did not show any acute changes. There is no evidence of disc herniation or spinal cord compression. She was given intravenous (IV) morphine, Valium in the ER, and her pain went down to 5 from 9; however, she is not able to ambulate, so medicine is called for admission. REVIEW OF SYSTEMS: Denies fever. No chills. No headache. No double vision. No shortness of breath. No chest pain. No abdominal pain. No diarrhea. No constipation. She lost urine control twice but no focal numbness or weakness in her bilateral lower extremities. All other systems reviewed were negative. PAST MEDICAL HISTORY: 1. Ankylosing spondylitis diagnosed in 2011. 2. Positive for HLA-B27. 3. History of left iritis. 4. Medullary sponge kidneys with kidney stones. 5. Migraine headache. 6. Mild aortic insufficiency. PAST SURGICAL HISTORY: 1. section. 2. Tubal ligation. SOCIAL HISTORY: She is . She has three children. 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 Denies smoking, alcohol drinking, or illicit drug abuse. She is full code. FAMILY HISTORY: No family history of rheumatoid arthritis or ankylosing spondylitis. ALLERGIES: No known drug allergies. MEDICATIONS: - magnesium oxide 400 mg once a day - potassium citrate 540 once a day - Zyrtec 10 mg by mouth daily - Humira 40 mg subcutaneous every other week - omeprazole 40 mg by mouth daily - rizatriptan as needed - ibuprofen as needed - Zoloft 100 mg by mouth daily PHYSICAL EXAMINATION: VITAL SIGNS: Temperature 97.1, heart rate 66, respirations 16, blood pressure 120/71, oxygen saturation 98% on room air. GENERAL: She is awake, alert, oriented times three. She is lying down in the bed. She is in moderate acute distress. HEENT: Atraumatic. Pupils equal, round, reactive to light. No jaundice. Ears, nose, and throat normal. Mouth mucosa dry. NECK: No jugular venous distention (JVD). LUNGS: Clear. No wheezing. No crackles. HEART: S1, S2, regular. No murmur. ABDOMEN: Soft. Bowel sounds positive. Nontender. LOWER EXTREMITIES: No edema in bilateral lower extremities. SKIN: No rash. There is severe tenderness in her low back area and also any movement of her lower extremities makes the pain worse. NEUROLOGIC: Nonfocal. Normal sensate. Normal reflexes. Normal muscle strength. PSYCHIATRIC: No acute psychosis. LABORATORY STUDIES: Include the following: CBC with differential: WBC 4.2, hemoglobin and hematocrit 13.3/39, platelets 319. Sodium is 133, potassium 3.8, chloride 103, bicarbonate 24, BUN 12, creatinine 0.7, glucose 86. MRI of the lumbar spine did not show any acute disc herniation or spinal cord compression. IMPRESSION: 1. Intractable lower back pain. 2. History of ankylosing spondylitis. 3. History of migraine headache. 4. Depression. PLAN: Patient will be admitted to the medical/surgical floor. Will treat her symptomatically using pain medications and muscle relaxer. Will continue her regular medications and will get a physical therapy (PT)/occupational therapy (OT) evaluation. She has an appointment with her potato seed cutter next Monday. Hopefully she is able to be discharged prior to that appointment. BONNIE
[2017-03-15 22:30] VITALS: BP 118/77
[2017-03-15] MEDS: ONDANSETRON 4MG/2ML VIAL (J2405) IV PRN (23:04)
[2017-03-15] MEDS: CETIRIZINE (ZyrTEC) 10 MG TAB PO SCH (23:53)
[2017-03-15] MEDS: TOPIRAMATE (TopAMAX) 25 MG TAB PO SCH (23:53)
[2017-03-16] MEDS: PERCOCET 5MG/325MG TAB PO PRN ×3 (05:23→20:35)
[2017-03-16] MEDS: CARISOPRODOL 350 MG TAB PO SCH ×3 (07:57→20:34)
[2017-03-16] MEDS: OMEPRAZOLE 20 MG CAP PO SCH (07:57)
[2017-03-16] MEDS: MAGNESIUM OXIDE 400 MG TAB (MAG-OX) PO SCH (07:57)
[2017-03-16] MEDS: MORPHINE 2 MG/ML 1ML SYRINGE IV PRN ×2 (07:57→19:43)
[2017-03-16 07:58] LABS: MEAN CORPUSCULAR HEMOGLOBIN 27.2 pg (27.0-33.0); MEAN CORPUSCULAR HGB CONC 32.1 g/dl (32.0-36.5); RED CELL DISTRIBUTION WIDTH 13.1 % (11.5-14.5); WHITE BLOOD COUNT 5.7 K/mm3 (4.0-10.0)
[2017-03-16 08:00] VITALS: BP 109/66
[2017-03-16] MEDS: SERTRALINE 100 MG TAB PO SCH (08:00)
[2017-03-16 08:17] LABS: ANION GAP 5 MEQ/L (8-16); BLOOD UREA NITROGEN 16 MG/DL (7-18); CALCIUM LEVEL 8.5 MG/DL (8.5-10.1); CARBON DIOXIDE LEVEL 28 MEQ/L (21-32); CHLORIDE LEVEL 108 MEQ/L (98-107); GLOMERULAR FILTRATION RATE > 60.0 (>60); GLUCOSE, FASTING 85 MG/DL (70-105); POTASSIUM SERUM 4.1 MEQ/L (3.5-5.1); SODIUM LEVEL 141 MEQ/L (136-145)
[2017-03-16] MEDS: ENOXAPARIN 40 MG/0.4 ML SYRINGE (J1650) SC SCH (08:17)
[2017-03-16] MEDS ORDERED: PANTOPRAZOLE 40MG TAB (PROTONIX) PO SCH (09:00)
[2017-03-16] MEDS ORDERED: CALCIUM CARBONATE 500 MG CHEW U/D PO PRN (10:00)
[2017-03-16] MEDS: ONDANSETRON 4MG/2ML VIAL (J2405) IV PRN ×2 (11:17→20:34)
[2017-03-16] MEDS: IBUPROFEN 800 MG TAB PO SCH ×3 (12:16→23:00)
[2017-03-16] MEDS ORDERED: LORazepam 1 MG TAB PO PRN (14:00)
[2017-03-16] MEDS: predniSONE 20 MG TAB PO SCH (14:37)
--- NOTE | 2017-03-16 14:44 | IPN ---
DATE: 03/16/2017 SUBJECTIVE: The patient continues to complain of severe low back pain radiating down her left leg. She denies any further episodes of incontinence, paresthesias, weakness, chest pain, shortness of breath, fevers or chills. OBJECTIVE: VITAL SIGNS: Temperature 96.7, pulse 66, respiratory rate 18, blood pressure 109/66, oxygen saturation 98% on room air. GENERAL: She is a very pleasant tired appearing female laying flat in bed. She appears mildly uncomfortable. HEENT: Cranial nerves II through XII are grossly intact. She has moist mucous membranes. No elevation of central venous pressure. CARDIOVASCULAR EXAM: S1, S2 regular. RESPIRATORY EXAM: Clear. ABDOMINAL EXAM: Bowel sounds are present. The abdomen is soft. EXTREMITIES: No clubbing, cyanosis, or edema. She has decreased range of motion of the lower extremities secondary to pain. LABORATORY STUDIES: WBC 5.7, hemoglobin 12.8, platelet count 291. Chemistry panel: Sodium 141, potassium 4.1, chloride 108, bicarb 28, BUN 16, creatinine 0.8, hCG is negative. CRP is less than 3 and ESR is 10. Urinalysis is fairly unremarkable. She did have a lumbar spine MRI which revealed slight L5-S1 discogenic changes, but the examination was otherwise unremarkable. At L5-S1 there is a slight broad based annular bulge. There is no disc herniation. ASSESSMENT/PLAN: This is a 31-year-old female with a history of ankylosing spondylitis presenting with acute on chronic back pain. PROBLEMS: 1. Acute on chronic back pain. The patient does have a history of ankylosing spondylitis with chronic low back pain, worse in the mornings, usually improving throughout the day; however, over the last 24-48 hours has progressively worsened to the point where she has had falls and it is to painful for her to walk. I did contact her test and balance engineer provider, Dr. Gallegos's office, . I did speak with him regarding her presentation, her unremarkable MRI and inflammatory markers. They also did share my suspicion that this could still be a flare-up of her ankylosing spondylitis. She is currently on Humira and ibuprofen as needed. At this time, after my discussion with her test and balance engineer, we will start her on prednisone 40 mg by mouth daily for five days then drop her to 30 mg for five days, then 20 mg for five days, and 10 mg for five days then stop. I have also placed the other possibility if this is not her ankylosing spondylitis it could be radicular pain associated with spasms. She will also be receiving Ativan 1 mg every 6 hours as needed for spasms. We will place her on ibuprofen 800 mg every 6 hours around the clock. She will also continue with Percocet one to two tablets every 4 hours as needed for pain, soma 350 mg three times a day, and morphine 1 mg IV every 2 hours as needed for severe pain. I have also encouraged her to work with physical therapy and I have requested a pain management consult to see if she may benefit from an SI joint injection or possibly and epidural or steroid injection. I do suspect is will take 24-48 hours before these interventions can show for an adequate response. 2. Migraines headaches. Continue with Maxalt. The patient is on Topamax. 3. Insomnia. Continue with Ambien. 4. Seasonal allergies. The patient is on Zyrtec. 5. Mood disorder. The patient is on Zoloft. 6. Gastroesophageal reflux disease (GERD). The patient is on omeprazole and Tums. 7. Deep vein thrombosis (DVT) prophylaxis. The patient is on Lovenox. DISPOSITION: Will continue to monitor her progress very closely over the next 24-48 hours.
[2017-03-16 16:00] VITALS: BP 116/65
--- NOTE | 2017-03-16 17:38 | CR ---
DATE OF CONSULTATION: 03/16/2017 CHIEF COMPLAINT: Low back pain. REFERRING PHYSICIAN: Dr. Perea HISTORY OF THE PRESENT ILLNESS: Carole is a 31-year-old female who was admitted yesterday due to severe intractable low back pain and bilateral leg pain, history of ankylosing spondylosis. On Humira a biweekly, last dose 4 days ago. Rating pain level as an 8/10. Pain is aggravated by side to side motion. States that she was able to tolerate getting up for a shower today, although it was painful and painful to walk. Has been on prednisone in the past for flare up and pain but never specifically for back pain. MRI of the lumbosacral (LS) spine done on admission yesterday does not show any significant pathology. Prednisone was started per rheumatology consult and first dose was given 3 hours ago. Denies recent fever or illness. Denies sudden weight loss. Denies bowel or bladder incontinence, although she did state that she had an episode of urinary incontinence prior to admission. PAST MEDICAL HISTORY: 1. Ankylosing spondylitis diagnosed in 2011. 2. Positive for HLA-B27. 3. History of left iritis. 4. Medullary sponge kidneys with kidney stones. 5. Migraine headache. 6. Mild aortic insufficiency. PAST SURGICAL HISTORY: section. Tubal ligation. SOCIAL HISTORY: She is . She has three children. 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 Denies smoking, alcohol or illicit drug use. FAMILY HISTORY: Noncontributory. ALLERGIES: No known drug allergies. PHYSICAL EXAMINATION Lying in bed. Appears comfortable. Affect is flat. Vital Signs: Temperature 96.7, pulse 66, respirations 18, blood pressure 109/66,oxygen saturation is 98% Cardiac: S1, S2. Normal rate and rhythm. Respiratory: Lung sounds clear. Respirations: Nonlabored. Inspection of spine: Tenderness with deep palpation over the LS axis and lumbar facet area bilaterally. Positive for increased pain with palpation over bilateral sacroiliac joint region. Neuromuscular: Normal sensation to light touch bilateral upper and lower extremities. Able to move legs freely, although when she elevates her legs laying on her back, this increases low back pain. DIAGNOSTIC DATA: MRI of the LS spine, 03/15/2017 - reviewed. ASESSMENT: 1. Acute low back pain. 2. Ankylosing spondylitis. PLAN: After discussing the potential risks of infection, being on Humira and having an injection, the patient is not interested in doing injections and would like to see prednisone, that was started a few hours ago, will help her. I would continue her current regimen of pain medications. Please contact us with any questions or concerns. Copy To: Dr. Perea
[2017-03-16] MEDS ORDERED: LORazepam 0.5 MG TAB PO PRN (18:12)
[2017-03-16 20:00] VITALS: BP 122/71
[2017-03-16] MEDS: CETIRIZINE (ZyrTEC) 10 MG TAB PO SCH (20:34)
[2017-03-16] MEDS: TOPIRAMATE (TopAMAX) 25 MG TAB PO SCH (20:34)
[2017-03-17] VITALS: BP 119/71
[2017-03-17] MEDS: IBUPROFEN 800 MG TAB PO SCH (05:58)
[2017-03-17 08:00] VITALS: BP 112/75
[2017-03-17] MEDS: ENOXAPARIN 40 MG/0.4 ML SYRINGE (J1650) SC SCH (09:00)
[2017-03-17] MEDS: predniSONE 20 MG TAB PO SCH (09:16)
[2017-03-17] MEDS: OMEPRAZOLE 20 MG CAP PO SCH (09:17)
[2017-03-17] MEDS: MAGNESIUM OXIDE 400 MG TAB (MAG-OX) PO SCH (09:17)
[2017-03-17] MEDS: SERTRALINE 100 MG TAB PO SCH (09:18)
[2017-03-17] MEDS: CARISOPRODOL 350 MG TAB PO SCH (09:18)
[2017-03-17] MEDS ORDERED: PRED10TA2 PO (10:17)
[2017-03-17] MEDS ORDERED: PERCOCET PO (10:17)
[2017-03-17] MEDS ORDERED: CARI350T PO (10:19)
--- NOTE | 2017-03-18 16:19 | DSES ---
DATE OF ADMISSION: 03/15/2017 DATE OF DISCHARGE: 03/17/2017 DISCHARGE DIAGNOSIS: Acute on chronic back pain. SECONDARY DIAGNOSIS: 1. Ankylosing spondylitis. 2. Migraine headaches. 3. Insomnia. 4. Seasonal allergies. 5. Mood disorder. 6. Gastroesophageal reflux disease. 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 She has chronic low back pain, which is usually worse in the morning. Gets better throughout the day; however, of late it had not been getting better throughout the day. She is currently on Humira and ibuprofen as needed for ankylosing spondylitis. She follows with bath mixer, Dr. Gallegos, in [place]. She presented to the emergency room with intractable back pain and was admitted. She was seen in consultation by Blank Xiao of the pain clinic, who did offer the patient injection to see if it would help; however, the patient declined this. I did personally reach out to the patient's rheumatology provider's office, who suggested that despite having negative inflammatory markers, she could certainly be having a flare of her ankylosing spondylitis, and as such we did start her on prednisone 40 mg daily for 5 days, then to be tapered 30 mg for 5 days, 20 mg for 5 days, 10 mg for 5 days, and then stop. During her stay she also intermittently received Ativan for spasms. She was also receiving Percocet. She currently does not need any intravenous (IV) narcotics. She was also receiving Soma while here. At this time, the patient has been cleared by physical therapy. SUBJECTIVE: The patient tells me that she is feeling better today. She would like to go home. She tells me that her pain is improving. She denies paralysis, weakness, bladder or bowel incontinence. OBJECTIVE: VITAL SIGNS: Temperature 98.5, pulse 79, respiratory rate 16, blood pressure (BP) 112/75, oxygen saturation 99% on room air. GENERAL: She is a very pleasant female lying in bed at a 30-degree angle. She does not appear to be in acute distress. She is more bright and more conversant. Appears to be more comfortable than previous days. HEENT: Cranial nerves II-XII are grossly intact. She has moist mucous membranes. No elevation in central venous pressure (CVP). CARDIOVASCULAR: S1, S2, regular. RESPIRATORY: Clear. ABDOMEN: Benign. Bowel sounds present. The abdomen is soft. EXTREMITIES: No clubbing, cyanosis, or edema. LABORATORY STUDIES: WBC 5.7, hemoglobin 12.8, platelet count 291. Chemistry panel: Sodium 141, potassium 4.1, chloride 108, bicarbonate 28, BUN 16, creatinine 0.8. IMAGING: The patient did have a lumbar spine MRI while she was here, which revealed slight L5-S1 discogenic changes. Examination otherwise unremarkable. ASSESSMENT AND PLAN: 1. This is a 31-year-old female with what is likely acute on chronic back pain secondary to anklyosing spondylitis. She has improved quite quickly with the current regimen of standing nonsteroidal anti-inflammatory drugs (NSAIDs), as needed Percocets, and prednisone. She will be discharged on this regimen as well. She has followup with her bath mixer's office on 03/20/2017, this morning, where after my conversation with them they are considering increasing her dosage of Humira. She has been cleared by physical therapy. She is improving. I did recommend she be off work until at least followup on Monday and have provided her with a prescription indicating as such. She will be on a tapering course of prednisone. 2. Migraines. Continue with Maxalt and Topamax. 3. Insomnia. Continue with Ambien. 4. Seasonal allergies. Continue with Zyrtec. 5. Mood disorder. Continue with Zoloft. 6. Gastroesophageal reflux disease. Continue with omeprazole and Tums. 7. Deep vein thrombosis (DVT) prophylaxis. Patient has been on Lovenox. DISPOSITION: The patient is being discharged home to the care of her . She is cleared by physical therapy. Her clinical status is improved. She is to followup with her primary care physician (PCP) within 7 days and her bath mixer on Monday. Her activity is off work until followup 03/20/2017, otherwise as tolerated. Her diet is as prior to admission. She is to return to the ER if her symptoms worsen. MEDICATIONS AT THE TIME OF DISCHARGE: - Percocet 5/325 one tablet every 4 hours as needed for pain, maximum 6 tablets per day, 24 tablets. - prednisone, taper as directed - Zyrtec 10 mg at bedtime - dicyclomine 20 mg before meals as needed for pain - Humira pen 40 mg subcutaneous every 2 weeks - ibuprofen 800 mg every 6 hours as needed for pain - magnesium oxide 400 mg daily - omeprazole 40 mg daily - potassium citrate 540 mg at bedtime - rizatriptan 10 mg as needed for headaches - sertraline 100 mg daily - topiramate 50 mg at bedtime - Ambien 5 mg at bedtime as needed for sleep Greater than 30 minutes spent organizing disposition.
== END 2017-03-17 11:45 | disposition home or self-care (01) | DRG 346 ==
LOC: M ED 09:31 → M ED INP 20:21 → M PED 22:20
PROVIDERS: ADMIT Hospitalist; ATTEND Internal Medicine
DX: M45.9 Ankylosing spondylitis of unspecified sites in spine (principal); F39 Unspecified mood [affective] disorder; G47.00 Insomnia, unspecified; K21.9 Gastro-esophageal reflux disease without esophagitis; G43.909 Migraine, unspecified, not intractable, without status migrainosus; Z79.899 Other long term (current) drug therapy; Z79.4 Long term (current) use of insulin

== ENCOUNTER → 2017-03-21 | Outpatient (CLI) | payer BC ==
[~2017-03-21] MED LIST changes: +AMBI5TAB PO; +CARI350T PO; +DICY20TA PO; +PERCOCET PO; +PRED10TA2 PO; +TOPI50TA9 PO; +ZOLO100T PO
--- NOTE | 2017-03-22 01:43 | REP ---
Clinical: Lower back pain. Technique: AP, cephalic angled, bilateral oblique views of the pelvis and sacroiliac joints. Findings: The bilateral sacroiliac joints are symmetric and normal for age. No significant periarticular sclerosis or fusion. Surrounding soft tissues are unremarkable. Impression: Normal age appropriate bilateral sacroiliac joints. Signed by Sourav Aponte MD 03/22/2017 01:35 A
--- NOTE | 2017-03-22 01:47 | REP ---
Clinical: Back pain. Technique: Frontal view of the pelvis with neutral and frog lateral views of the bilateral hips. Findings: Pelvis and bilateral hips appear relatively normal for age. Very subtle increased sclerosis to the acetabular roof noted bilaterally and consistent with age-related changes. No overt osteoarthritic degenerative changes are appreciated. No acute fracture dislocation. Surrounding soft tissues normal. Impression: Mild age-related changes to the bilateral hips. Signed by Sourav Aponte MD 03/22/2017 01:39 A
--- NOTE | 2017-03-22 01:57 | REP ---
Clinical: Back pain. Technique: AP and lateral views of the cervical, thoracic, lumbar spine. Findings: Straightening of normal lordosis in the cervical spine with mild/moderate degenerative changes at the C3-4 to C5-6 levels is suggested. Thoracic spine demonstrates normal alignment and kyphosis. Lumbar spine demonstrates normal alignment and lordosis. Impression: Mild/moderate degenerative changes in the cervical spine. Clinical correlation is recommended and MRI should be considered if the patient remains symptomatic. Signed by Sourav Aponte MD 03/22/2017 01:49 A
== END ==
LOC: M RAD 10:14
PROVIDERS: ATTEND Physician Assistant Medical
DX: M54.5 Low back pain (principal)

== ENCOUNTER → 2017-03-23 | Outpatient (CLI) | payer BC ==
--- NOTE | 2017-03-23 15:47 | REP ---
LEFT BREAST ULTRASOUND: 03/23/2017. Clinical history: Palpable lump about the noon position periareolar region. The patient states it is about the size of a grape. Comparison: Diagnostic digital left mammogram today. Findings: Sonographic evaluation of the left breast from the 11-o'clock to 1-o'clock position in the upper periareolar region in the region of her palpable finding. Some heterogeneous echogenic dense breast tissue is noted, but there is no discrete mass, cyst, architectural distortion or dilated duct. No abnormal skin thickening noted. Impression: 1. BIRADS ACR category 1 negative. No sonographic evidence of mass, cyst, architectural distortion or other finding. Please see mammogram report this date for final assessment and recommendation. Signed by Florentino Thakkar MD 03/23/2017 06:36 P
--- NOTE | 2017-03-23 15:51 | REP ---
DIAGNOSTIC DIGITAL LEFT MAMMOGRAM: 03/23/2017. Comparison: Left breast ultrasound today. Clinical history: Palpable lump left breast for the past 3 weeks about the noon position periareolar region toward the outer half. She has a family history of paternal aunts with breast cancer in their 40s. She has no history of breast surgery or previous problems. Standard two-view mammography with a triangle marker placed by the patient at the site of her reported palpable finding. Additional spot magnified CC and MLO views over this region and magnified true MLO view also of the anterior breast in this region are provided. There are scattered fibroglandular elements in the breast parenchyma in a pattern and distribution that might obscure a lesion. There are no dominant masses, areas of architectural distortion, skin thickening, clustered microcalcifications or other secondary signs of malignancy. Spot magnified views confirm the absence of any discrete mammographically definable mass, architectural distortion or clustered microcalcifications. Likewise, the true ML view is unremarkable covering this same region. The left breast ultrasound this date showed no sonographic abnormality in this region. Impression: 1. BIRADS ACR category 1 negative. No mammographic or sonographic evidence of malignancy. There are no findings in the region of her reported palpable abnormality. 2. Recommend followup mammography at age 40 or sooner if clinically warranted. This negative report should not deter further evaluation of a dominant or suspicious physical finding. This mammogram was interpreted with the aid of an FDA-approved computer-aided detection system. A. Negative x-ray reports should not delay biopsy if a dominant or clinically suspicious mass is present. B. Four to eight percent of cancers are not identified by x-ray. C. Adenosis and dense breasts may obscure an underlying neoplasm The patient states she/he had a clinical breast exam in March 2017. The patient letter being requested is M2. BI-RADS/ACR category 1 mammogram. Negative. Routine annual screening mammography (for women over age 40). Signed by Florentino Thakkar MD 03/23/2017 06:37 P
== END ==
LOC: M RAD 13:24
PROVIDERS: ATTEND Obstetrics & Gynecology
DX: N63 Unspecified lump in breast (principal)
CPT/HCPCS: 76642; G0206

== ENCOUNTER → 2017-07-01 | Outpatient (REF) | payer BC | LOC: M LAB REF 16:36 | PROVIDERS: ATTEND Physician Assistant Medical | DX: K58.0 Irritable bowel syndrome with diarrhea (principal) ==

== ENCOUNTER → 2017-10-05 | Outpatient (CLI) | payer BC ==
[2017-10-05 09:27] LABS: BASO % 0.5 % (0.0-1.0); EOS # 0.1 10^3/uL (0.0-0.50); EOS % 1.7 % (0.0-3.0); HEMATOCRIT 39.3 % (36.0-47.0); HEMOGLOBIN 12.6 g/dl (12.0-16.0); IMMATURE GRANULOCYTE % 0.2 % (0-3.0); LYMPH # 1.5 10^3/uL (1.5-4.5); LYMPH % 24.9 % (24.0-44.0); MEAN CORPUSCULAR HEMOGLOBIN 26.8 pg (27.0-33.0); MEAN CORPUSCULAR HGB CONC 32.1 g/dl (32.0-36.5); MEAN CORPUSCULAR VOLUME 83.6 fl (80.0-96.0); MONO # 0.6 10^3/uL (0.0-0.8); MONO % 9.4 % (0.0-5.0); NEUTROPHILS # 3.8 10^3/uL (1.8-7.7); NEUTROPHILS % 63.3 % (36.0-66.0); PLATELET COUNT, AUTOMATED 367 10^3/uL (150-450); RED CELL DISTRIBUTION WIDTH 12.8 % (11.5-14.5); WHITE BLOOD COUNT 5.9 10^3/uL (4.0-10.0)
[2017-10-05 09:53] LABS: ALBUMIN 3.9 GM/DL (3.2-5.2); ALBUMIN/GLOBULIN RATIO 1.18 (1.00-1.93); ALKALINE PHOSPHATASE 65 U/L (45-117); ALT/SGPT 34 U/L (12-78); ANION GAP 8 MEQ/L (8-16); AST/SGOT 19 U/L (7-37); BILIRUBIN,TOTAL 0.4 MG/DL (0.2-1.0); BLOOD UREA NITROGEN 26 MG/DL (7-18); CALCIUM LEVEL 8.9 MG/DL (8.5-10.1); CARBON DIOXIDE LEVEL 25 MEQ/L (21-32); CHLORIDE LEVEL 108 MEQ/L (98-107); CREATININE FOR GFR 0.76 MG/DL (0.55-1.30); FREE T4 0.96 NG/DL (0.76-1.46); GLOMERULAR FILTRATION RATE > 60.0 (>60); GLUCOSE, FASTING 87 MG/DL (70-100); POTASSIUM SERUM 4.3 MEQ/L (3.5-5.1); SODIUM LEVEL 141 MEQ/L (136-145); TOTAL PROTEIN 7.2 GM/DL (6.4-8.2)
[2017-10-05 10:35] LABS: TOTAL 25(OH) VITAMIN D 23.8 NG/ML (30.0-100.0)
== END ==
LOC: M RAD 08:00
DX: E04.2 Nontoxic multinodular goiter (principal)

== ENCOUNTER → 2017-10-26 | Outpatient (CLI) | payer BC | LOC: M RAD 15:57 | DX: M50.223 Other cervical disc displacement at C6-C7 level (principal); M25.78 Osteophyte, vertebrae | CPT/HCPCS: 72141 ==

== ENCOUNTER 2017-11-21 08:10 | Outpatient (RCR) | payer BC | END 2017-12-18 | LOC: M PT 08:10 | DX: Z51.89 Encounter for other specified aftercare (principal); M54.2 Cervicalgia | CPT/HCPCS: 97012 ==

== ENCOUNTER 2017-12-19 08:58 | Outpatient (RCR) | payer BC | END 2018-01-18 | LOC: M PT 12-21 11:45 | DX: Z51.89 Encounter for other specified aftercare (principal); M54.2 Cervicalgia ==

== ENCOUNTER 2018-01-24 11:21 | Outpatient (RCR) | payer BC | END 2018-02-17 | LOC: M PT 01-26 12:57 | DX: Z51.89 Encounter for other specified aftercare (principal); M54.2 Cervicalgia | CPT/HCPCS: 97010 ==

== ENCOUNTER → 2018-02-07 | Outpatient (CLI) | payer BC | LOC: M RAD 14:24 | DX: R10.2 Pelvic and perineal pain (principal) ==

== ENCOUNTER → 2018-03-27 | Outpatient (CLI) | payer BC | LOC: M RAD 12:25 | DX: R10.2 Pelvic and perineal pain (principal); D25.1 Intramural leiomyoma of uterus | CPT/HCPCS: 76856 ==

== ENCOUNTER 2018-04-18 18:44 | Emergency (ER) | payer BC ==
[2018-04-18] MEDS ORDERED: ONDANSETRON 4MG/2ML VIAL (J2405) As Ordered (19:07)
[2018-04-18] MEDS: NS 500 ML IV (19:13)
[2018-04-18] MEDS: MORPHINE 4 MG/ML 1ML VIAL/SYRINGE (J2270) IV (19:13)
[2018-04-18] MEDS: KETOROLAC 30 MG/ML VIAL (J1885) IV (19:15)
[2018-04-18 19:32] LABS: BASO % 0.4 % (0.0-1.0); EOS # 0.1 10^3/uL (0.0-0.50); EOS % 1.8 % (0.0-3.0); HEMATOCRIT 39.1 % (36.0-47.0); HEMOGLOBIN 12.5 g/dl (12.0-15.5); IMMATURE GRANULOCYTE % 0.3 % (0-3.0); LYMPH # 2.3 10^3/uL (1.5-4.5); LYMPH % 29.3 % (24.0-44.0); MEAN CORPUSCULAR HEMOGLOBIN 27.4 pg (27.0-33.0); MEAN CORPUSCULAR VOLUME 85.6 fl (80.0-96.0); MONO # 0.7 10^3/uL (0.0-0.8); MONO % 8.4 % (0.0-5.0); NEUTROPHILS # 4.7 10^3/uL (1.8-7.7); NEUTROPHILS % 59.8 % (36.0-66.0); PLATELET COUNT, AUTOMATED 366 10^3/uL (150-450); RED BLOOD COUNT 4.57 10^6/uL (4.00-5.40); WHITE BLOOD COUNT 7.9 10^3/uL (4.0-10.0)
[2018-04-18 19:50] LABS: ANION GAP 6 MEQ/L (8-16); BLOOD UREA NITROGEN 15 MG/DL (7-18); CALCIUM LEVEL 8.2 MG/DL (8.5-10.1); CARBON DIOXIDE LEVEL 25 MEQ/L (21-32); CHLORIDE LEVEL 110 MEQ/L (98-107); CREATININE FOR GFR 0.85 MG/DL (0.55-1.30); GLOMERULAR FILTRATION RATE > 60.0 (>60); GLUCOSE, FASTING 82 MG/DL (70-100); POTASSIUM SERUM 3.5 MEQ/L (3.5-5.1); SODIUM LEVEL 141 MEQ/L (136-145)
[2018-04-18 20:01] LABS: KETONE, URINE AUTO RFX TRACE mg/dL (NEGATIVE); LEUKOCYTE ESTERASE UR AUTO RFX NEGATIVE (NEGATIVE); MUCUS, URINE RFX SMALL (NEGATIVE); NITRITE, URINE AUTO RFX NEGATIVE (NEGATIVE); RBC, URINE AUTO RFX TNTC /HPF (0-3); SPECIFIC GRAVITY UR AUTO RFX 1.027 (1.002-1.035); SQUAM EPITHELIAL CELL UR AURFX 1 /HPF (0-6); WBC, URINE AUTO RFX 4 /HPF (0-3)
[2018-04-18] MEDS ORDERED: MORPHINE 2 MG/ML 1ML SYRINGE (J2270) As Ordered (20:38)
[2018-04-18] MEDS: MORPHINE 2 MG/ML 1ML SYRINGE (J2270) IV (20:43)
[2018-04-18] MEDS: NORCO 5/325MG TABLET (BULK FOR ED) PO (21:15)
== END 2018-04-18 21:28 | disposition home or self-care (01) ==
LOC: M ED 18:44
DX: N39.0 Urinary tract infection, site not specified (principal); R31.9 Hematuria, unspecified; N20.0 Calculus of kidney; N23 Unspecified renal colic; Z87.442 Personal history of urinary calculi; G43.909 Migraine, unspecified, not intractable, without status migrainosus; I35.1 Nonrheumatic aortic (valve) insufficiency; Q61.5 Medullary cystic kidney; Z79.899 Other long term (current) drug therapy
CPT/HCPCS: J2270

== ENCOUNTER 2018-04-25 09:06 | Day surgery (SDC) | payer BC ==
[~2018-04-25 09:06] MED LIST changes: -/LORA10TA GT; -ACET50TA PO; -ALPHAGAN P OS; -AMBI5TAB PO; -AUGM875T28 PO; -AVELOX PO; -BENADRYL; -BENADRYL PO; -CARA1TAB6 PO; -CARI350T PO; -CLEOCIN PO; -CO Q100C10 PO; -COQ-100C PO; -DECADRON PO; -DICL10TA PO; -DICY20TA PO; -DICY20TA11 PO; -DOCU10ELUD PO; -EXCETAB80 PO; -HOMATROPINE OS; -HUMI40KI2 SC; -IBUP-1022 PO; -IBUP80TA PO; +LIDOCAINE 1% MDV 20ML VIAL SQ; -LORA10TA2 PO; -MAAL600C PO; -MAGN400T5 PO; -MECL1CHW2 PO; -MOTR200T44 PO; -OMEP40CA2 PO; -OMEPPOW18 PO; -PEPC40SU PO; -PERC5TAB12 PO; -PERCOCET PO; -POTA540T PO; -PRED FORTE OS; -PRED10TA2 PO; -PRENTAB74 PO; -PRIL40CA PO; -RIBO100C PO; -RIZA10TA2 PO; -ROBA750T4 PO; -SERT-155; -SUDA30TA PO; -TOPI1CAP4 PO; -TOPI50TA9 PO; -TREX50TA PO; -TREXIMET PO; -VALI5TAB PO; -VITA100L PO; -VITAPRTA PO; -ZITH250T PO; -ZOFR4TAB3 PO; -ZOLO100T PO; -ZYRT10TA2 PO; -claritin PO; -colace PO; -ibuprofen PO; -potassium citrate PO
[2018-04-25] MEDS ORDERED: LIDOCAINE 2% INJ 100 MG/5 ML SDV (FOR ANES.) As Ordered (09:38)
[2018-04-25] MEDS ORDERED: ROCURONIUM BROMIDE 50 MG/5 ML VIAL As Ordered ×2 (09:38→11:38)
[2018-04-25] MEDS ORDERED: KETOROLAC 60 MG/2 ML VIAL (J1885) As Ordered ×2 (09:38→11:35)
[2018-04-25] MEDS ORDERED: ONDANSETRON 4MG/2ML VIAL (J2405) As Ordered ×2 (09:38→11:36)
[2018-04-25] MEDS ORDERED: dexameTHASONE 4 MG/ML 1ML VIAL (J1100) As Ordered ×3 (09:38→11:35)
[2018-04-25] MEDS ORDERED: NEOSTIGMINE 10 MG/10 ML VIAL (J2710) As Ordered ×2 (09:38→11:35)
[2018-04-25] MEDS ORDERED: GLYCOPYRROLATE INJ 0.2 MG/ML 2 ML VIAL As Ordered ×2 (09:38→11:35)
[2018-04-25] MEDS ORDERED: MIDAZOLAM INJ 2 MG/2 ML VIAL (J2250) As Ordered (09:38)
[2018-04-25] MEDS ORDERED: PROPOFOL 200 MG/20 ML VIAL As Ordered (09:38)
[2018-04-25] MEDS ORDERED: fentaNYL 100 MCG/2 ML INJECTION (J3010) As Ordered ×2 (09:38→11:11)
[2018-04-25 09:44] LABS: HEMATOCRIT 39.3 % (36.0-47.0); HEMOGLOBIN 12.4 g/dl (12.0-15.5); MEAN CORPUSCULAR HEMOGLOBIN 26.8 pg (27.0-33.0); MEAN CORPUSCULAR HGB CONC 31.6 g/dl (32.0-36.5); MEAN CORPUSCULAR VOLUME 84.9 fl (80.0-96.0); PLATELET COUNT, AUTOMATED 333 10^3/uL (150-450); RED BLOOD COUNT 4.63 10^6/uL (4.00-5.40); RED CELL DISTRIBUTION WIDTH 13.2 % (11.5-14.5); WHITE BLOOD COUNT 4.9 10^3/uL (4.0-10.0)
[2018-04-25 09:54] LABS: CONTROL LINE UCG INT CTR LINE PRESENT; URINE PREG TEST NEGATIVE (NEGATIVE)
[2018-04-25] MEDS: SCOPOLAMINE 1MG TRANSDERMAL PATCH TOP (10:00)
[2018-04-25] MEDS ORDERED: LR 1,000 ML IV ×2 (10:00→13:00)
[2018-04-25 10:03] LABS: ANION GAP 8 MEQ/L (8-16); BLOOD UREA NITROGEN 13 MG/DL (7-18); CALCIUM LEVEL 8.7 MG/DL (8.5-10.1); CARBON DIOXIDE LEVEL 22 MEQ/L (21-32); CHLORIDE LEVEL 112 MEQ/L (98-107); CREATININE FOR GFR 0.87 MG/DL (0.55-1.30); GLOMERULAR FILTRATION RATE > 60.0 (>60); GLUCOSE, FASTING 79 MG/DL (70-100); POTASSIUM SERUM 4.3 MEQ/L (3.5-5.1); SODIUM LEVEL 142 MEQ/L (136-145)
[2018-04-25] MEDS: ACETAMINOPHEN 650 MG SUPP As Ordered (10:13)
[2018-04-25] MEDS ORDERED: SCOPOLAMINE 1MG TRANSDERMAL PATCH As Ordered (10:13)
[2018-04-25] MEDS: ACETAMINOPHEN 650 MG SUPP PR (10:58)
[2018-04-25] MEDS ORDERED: HYDROmorphone HCL 2 MG/ML 1ML VIAL (J1170) As Ordered (11:13)
[2018-04-25] MEDS ORDERED: METOCLOPRAMIDE INJ 10MG/2ML VIAL (J2765) As Ordered (11:36)
[2018-04-25] MEDS: FLUORESCEIN 10% (100MG/ML) 5 ML VIAL As Ordered (11:48)
[2018-04-25] MEDS: SIMETHICONE 80 MG CHEW TAB PO ×2 (12:00→17:48)
[2018-04-25] MEDS: BUPIVACAINE/EPIN 0.25% 30 ML VIAL As Ordered (12:09)
[2018-04-25] MEDS ORDERED: ONDANSETRON 4MG/2ML VIAL (J2405) IV (13:00)
[2018-04-25] MEDS ORDERED: fentaNYL 100 MCG/2 ML INJECTION (J3010) IV (13:00)
[2018-04-25] MEDS: LR 1,000 ML IV (13:00)
[2018-04-25] MEDS: NORCO, ANEXSIA 5/325MG TABLET (HYDROcodone/ACETAMINOPHEN) PO (13:28)
[2018-04-25] MEDS: PERCOCET 5MG/325MG TAB PO (15:27)
[2018-04-25] MEDS: IBUPROFEN 800 MG TAB PO (17:48)
== END 2018-04-25 18:15 | disposition home or self-care (01) ==
LOC: M SDC 09:06 → M PED 13:50 → M SDC 18:15
DX: R10.2 Pelvic and perineal pain (principal); N92.1 Excessive and frequent menstruation with irregular cycle; E04.9 Nontoxic goiter, unspecified; K57.30 Diverticulosis of large intestine without perforation or abscess without bleeding; K58.9 Irritable bowel syndrome, unspecified; M12.9 Arthropathy, unspecified; M45.9 Ankylosing spondylitis of unspecified sites in spine; F32.9 Major depressive disorder, single episode, unspecified; G43.909 Migraine, unspecified, not intractable, without status migrainosus; H20.9 Unspecified iridocyclitis; R06.83 Snoring; Q61.5 Medullary cystic kidney; J30.9 Allergic rhinitis, unspecified; Z79.899 Other long term (current) drug therapy; Z98.51 Tubal ligation status
CPT/HCPCS: 58571

== ENCOUNTER 2018-05-21 16:00 | Emergency (ER) | payer BC ==
[2018-05-21] MEDS: NS 1,000 ML IV (16:45)
[2018-05-21 16:48] LABS: HEMATOCRIT 37.3 % (36.0-47.0); HEMOGLOBIN 11.9 g/dl (12.0-15.5); MEAN CORPUSCULAR HEMOGLOBIN 27.2 pg (27.0-33.0); MEAN CORPUSCULAR HGB CONC 31.9 g/dl (32.0-36.5); MEAN CORPUSCULAR VOLUME 85.2 fl (80.0-96.0); PLATELET COUNT, AUTOMATED 342 10^3/uL (150-450); RED BLOOD COUNT 4.38 10^6/uL (4.00-5.40); RED CELL DISTRIBUTION WIDTH 12.9 % (11.5-14.5); WHITE BLOOD COUNT 9.8 10^3/uL (4.0-10.0)
[2018-05-21 17:13] LABS: CONTROL LINE HCG INT CTR LINE PRESENT; HCG, SERUM QUALITATIVE NEGATIVE (NEGATIVE)
[2018-05-21 17:16] LABS: ALBUMIN 4.3 GM/DL (3.2-5.2); ALBUMIN/GLOBULIN RATIO 1.43 (1.00-1.93); ALKALINE PHOSPHATASE 56 U/L (45-117); ALT/SGPT 22 U/L (12-78); ANION GAP 8 MEQ/L (8-16); AST/SGOT 19 U/L (7-37); BILIRUBIN,DIRECT 0.1 MG/DL (0.0-0.2); BILIRUBIN,TOTAL 0.3 MG/DL (0.2-1.0); BLOOD UREA NITROGEN 14 MG/DL (7-18); CALCIUM LEVEL 9.4 MG/DL (8.5-10.1); CARBON DIOXIDE LEVEL 24 MEQ/L (21-32); CHLORIDE LEVEL 108 MEQ/L (98-107); CREATININE FOR GFR 0.79 MG/DL (0.55-1.30); GLOMERULAR FILTRATION RATE > 60.0 (>60); GLUCOSE, FASTING 86 MG/DL (70-100); LIPASE 186 U/L (73-393); POTASSIUM SERUM 4.1 MEQ/L (3.5-5.1); SODIUM LEVEL 140 MEQ/L (136-145); TOTAL PROTEIN 7.3 GM/DL (6.4-8.2)
[2018-05-21] MEDS ORDERED: ISOVUE-370 76% 100ML VIAL (Q9967) As Ordered (17:36)
[2018-05-21] MEDS: CEPHALEXIN 500 MG CAP PO (18:17)
== END 2018-05-21 18:33 | disposition home or self-care (01) ==
LOC: M ED 16:00
DX: L03.316 Cellulitis of umbilicus (principal); I35.1 Nonrheumatic aortic (valve) insufficiency; G43.909 Migraine, unspecified, not intractable, without status migrainosus; M45.9 Ankylosing spondylitis of unspecified sites in spine; J30.2 Other seasonal allergic rhinitis; Z87.442 Personal history of urinary calculi; Z79.899 Other long term (current) drug therapy
CPT/HCPCS: Q9967

== ENCOUNTER → 2018-07-10 | Outpatient (CLI) | payer BC ==
[2018-07-10 16:29] LABS: BASO % 0.3 % (0.0-1.0); EOS # 0.1 10^3/uL (0.0-0.50); EOS % 1.7 % (0.0-3.0); HEMATOCRIT 37.9 % (36.0-47.0); HEMOGLOBIN 12.2 g/dl (12.0-15.5); IMMATURE GRANULOCYTE % 0.5 % (0-3.0); LYMPH % 30.5 % (24.0-44.0); MEAN CORPUSCULAR HEMOGLOBIN 27.3 pg (27.0-33.0); MEAN CORPUSCULAR HGB CONC 32.2 g/dl (32.0-36.5); MEAN CORPUSCULAR VOLUME 84.8 fl (80.0-96.0); MONO # 0.5 10^3/uL (0.0-0.8); MONO % 7.5 % (0.0-5.0); NEUTROPHILS # 3.8 10^3/uL (1.8-7.7); NEUTROPHILS % 59.5 % (36.0-66.0); PLATELET COUNT, AUTOMATED 358 10^3/uL (150-450); RED BLOOD COUNT 4.47 10^6/uL (4.00-5.40); RED CELL DISTRIBUTION WIDTH 12.7 % (11.5-14.5); WHITE BLOOD COUNT 6.4 10^3/uL (4.0-10.0)
[2018-07-10 16:38] LABS: ALT/SGPT 24 U/L (12-78); AST/SGOT 15 U/L (7-37); C REACTIVE PROTEIN QUANTITATIV < 0.30 MG/DL (0.00-0.30); CREATININE FOR GFR 0.91 MG/DL (0.55-1.30); GLOMERULAR FILTRATION RATE > 60.0 (>60)
[2018-07-10 19:33] LABS: ERYTHROCYTE SEDIMENTATION RATE 12 mm/hr (0-20)
== END ==
LOC: M LAB 15:51
DX: Z51.81 Encounter for therapeutic drug level monitoring (principal); Z79.899 Other long term (current) drug therapy
CPT/HCPCS: 84460

== ENCOUNTER → 2018-07-10 | Outpatient (CLI) | payer BC ==
[2018-07-10 16:48] LABS: FREE T4 1.03 NG/DL (0.76-1.46)
[2018-07-11 06:03] LABS: THYROGLOBULIN ANTIBODY 35.6 U/ML (<60.0); THYROID PEROXIDASE ANTIBODY 28.6 U/ML (<60.0)
== END ==
LOC: M LAB 15:46
DX: E04.1 Nontoxic single thyroid nodule (principal)
CPT/HCPCS: 84443

== ENCOUNTER 2018-08-17 12:33 | Emergency (ER) | payer BC ==
[~2018-08-17] VITALS: Ht 157.5 cm; Wt 86.4 kg
[~2018-08-17 12:33] MED LIST changes: +/LORA10TA GT; +ACET50TA PO; +ALPHAGAN P OS; +AMBI5TAB PO; +AUGM875T28 PO; +AVELOX PO; +BENADRYL; +BENADRYL PO; +CARA1TAB6 PO; +CARI1TAB7 PO; +CIPR-249 PO; +CLEOCIN PO; +CO Q100C10 PO; +COQ-100C PO; +DECADRON PO; +DICL10TA PO; +DICY20TA PO; +DICY20TA11 PO; +DIFL150T PO; +DOCU10ELUD PO; +EXCETAB80 PO; +HOMATROPINE OS; +HUMI40KI2 SC; +HYDR-3713 PO; +IBUP-1022 PO; +IBUP1TAB7 PO; +IBUP80TA PO; +KEFL500C17 PO; +KETO10TAB PO; -LIDOCAINE 1% MDV 20ML VIAL SQ; +LORA-243 PO; +MAAL600C PO; +MAGN400T5 PO; +MECL1CHW2 PO; +MOTR200T44 PO; +OMEP40CA2 PO; +OMEPPOW18 PO; +PEPC40SU PO; +PERC5TAB12 PO; +PERCOCET PO; +POTA540T PO; +PRED FORTE OS; +PRED10TA2 PO; +PRENTAB74 PO; +PRIL40CA PO; +RIBO100C PO; +RIZA10TA2 PO; +ROBA750T4 PO; +SERT-155; +SIME80TA PO; +SUDA30TA PO; +TOPI1CAP4 PO; +TOPI50TA9 PO; +TRAZ-163 PO; +TREX50TA PO; +TREXIMET PO; +VALI5TAB PO; +VITA100L PO; +VITAPRTA PO; +ZITH250T PO; +ZOFR4TAB14 PO; +ZOLO100T PO; +ZYRT10CA5 PO; +[UNRECOGNIZED DRUG - OTHER] SC; +claritin PO; +colace PO; +ibuprofen PO; +potassium citrate PO
[2018-08-17] MEDS ORDERED: KETOROLAC 60 MG/2 ML VIAL (J1885) IM ONE (13:00)
[2018-08-17] MEDS ORDERED: PERCOCET 5MG/325MG TAB PO ONE (15:00)
[2018-08-17] MEDS ORDERED: diazePAM 5 MG TAB PO ONE (15:00)
--- NOTE | 2018-08-17 16:30 | REP ---
MRI of the lumbar spine MRI study: History: Low back pain. Groin numbness. Injury in a fall August 04. Technique: Sagittal and axial T1 and T2-weighted scans are acquired in the usual fashion with and without fat saturation. Sequences include spin echo, turbo spin-echo, and STIR imaging sequences. MRI findings: There is a multilocular cyst seen incompletely in the left adnexa on axial and sagittal images. This measures 2.6 cm in diameter and is compatible with a left ovarian cyst. No other significant extra spinal finding. Cortical and medullary bone signal intensity are normal. Vertebral body heights are preserved. Alignment is normal. Conus medullaris is normal in position and appearance at L1. There is mild degenerative disc desiccation at the L5-S1 level. Other lumbar disc spaces are preserved in height and signal intensity. Axial and sagittal images at each disc level in the lumbar spine show no evidence of focal disc protrusion, central canal stenosis, or neural foraminal encroachment. There is minimal facet hypertrophy bilaterally L5-S1. Impression: Mild degenerative disc and facet hypertrophy bilaterally L5-S1. No disc protrusion is seen. No central canal stenosis or neural foraminal narrowing. There is a 2.6 cm cystic area partially visualized in the left ovary. Electronically Signed by Carlos Arciniega MD 08/17/2018 05:04 P
[2018-08-17 17:35] VITALS: BP 126/75
--- NOTE | 2018-08-18 07:35 | ED PDOC ---
Post-Departure Follow-Up radiology rpeor tfaxed to Julianna Membreno MD Aug 18, 2018 07:35
== END 2018-08-17 17:57 | disposition home or self-care (01) ==
LOC: M ED 12:33
DX: M43.07 Spondylolysis, lumbosacral region (principal); M45.9 Ankylosing spondylitis of unspecified sites in spine; J30.89 Other allergic rhinitis; Z79.899 Other long term (current) drug therapy
CPT/HCPCS: 72148; 81001; 96372; 99283; J1885

== ENCOUNTER → 2018-11-02 | Outpatient (CLI) | payer BC ==
[2018-11-02 15:56] LABS: BASO % 0.8 % (0.0-1.0); EOS # 0.1 10^3/uL (0.0-0.50); EOS % 2.1 % (0.0-3.0); HEMOGLOBIN 12.2 g/dl (12.0-15.5); LYMPH # 1.6 10^3/uL (1.5-4.5); LYMPH % 33.7 % (24.0-44.0); MEAN CORPUSCULAR HEMOGLOBIN 27.8 pg (27.0-33.0); MEAN CORPUSCULAR HGB CONC 32.1 g/dl (32.0-36.5); MEAN CORPUSCULAR VOLUME 86.6 fl (80.0-96.0); MONO # 0.5 10^3/uL (0.0-0.8); MONO % 9.5 % (0.0-5.0); NEUTROPHILS # 2.5 10^3/uL (1.8-7.7); NEUTROPHILS % 53.7 % (36.0-66.0); PLATELET COUNT, AUTOMATED 333 10^3/uL (150-450); RED BLOOD COUNT 4.39 10^6/uL (4.00-5.40); WHITE BLOOD COUNT 4.7 10^3/uL (4.0-10.0)
[2018-11-02 16:06] LABS: ALT/SGPT 18 U/L (12-78); C REACTIVE PROTEIN QUANTITATIV < 0.30 MG/DL (0.00-0.30); CREATININE FOR GFR 0.84 MG/DL (0.55-1.30); GLOMERULAR FILTRATION RATE > 60.0 (>60)
[2018-11-02 16:46] LABS: ERYTHROCYTE SEDIMENTATION RATE 6 mm/hr (0-20)
== END ==
LOC: M LAB 15:22
PROVIDERS: ATTEND Nurse Practitioner
DX: M46.99 Unspecified inflammatory spondylopathy, multiple sites in spine (principal)

== ENCOUNTER 2018-11-27 12:13 | Emergency (ER) | payer BC ==
[~2018-11-27] VITALS: Ht 157.5 cm; Wt 79.1 kg
[~2018-11-27 12:13] MED LIST changes: -/LORA10TA GT; -ACET50TA PO; -DOCU10ELUD PO; +DOCU5LIQ PO; +LORA-385 GT; +MAPA500T17 PO; +MECL1CHW PO; -MECL1CHW2 PO
[2018-11-27] MEDS ORDERED: KETOROLAC 30 MG/ML VIAL (J1885) IV ONE (13:00)
[2018-11-27] MEDS ORDERED: ONDANSETRON 4MG/2ML VIAL (J2405) IV ONE (13:00)
[2018-11-27] MEDS ORDERED: NS 1,000 ML IV ONE (13:00)
[2018-11-27 13:16] LABS: BASO % 0.6 % (0.0-1.0); EOS # 0.2 10^3/uL (0.0-0.50); EOS % 2.3 % (0.0-3.0); HEMATOCRIT 42.3 % (36.0-47.0); HEMOGLOBIN 13.4 g/dl (12.0-15.5); LYMPH # 1.9 10^3/uL (1.5-4.5); LYMPH % 26.5 % (24.0-44.0); MEAN CORPUSCULAR HEMOGLOBIN 27.3 pg (27.0-33.0); MEAN CORPUSCULAR HGB CONC 31.7 g/dl (32.0-36.5); MEAN CORPUSCULAR VOLUME 86.2 fl (80.0-96.0); MONO # 0.7 10^3/uL (0.0-0.8); MONO % 10.2 % (0.0-5.0); NEUTROPHILS # 4.3 10^3/uL (1.8-7.7); NEUTROPHILS % 59.6 % (36.0-66.0); PLATELET COUNT, AUTOMATED 389 10^3/uL (150-450); RED BLOOD COUNT 4.91 10^6/uL (4.00-5.40); WHITE BLOOD COUNT 7.3 10^3/uL (4.0-10.0)
[2018-11-27 13:28] LABS: BLOOD UREA NITROGEN 14 MG/DL (7-18); CALCIUM LEVEL 9.2 MG/DL (8.5-10.1); CARBON DIOXIDE LEVEL 24 MEQ/L (21-32); CHLORIDE LEVEL 108 MEQ/L (98-107); CREATININE FOR GFR 0.88 MG/DL (0.55-1.30); GLOMERULAR FILTRATION RATE > 60.0 (>60); GLUCOSE, FASTING 89 MG/DL (70-100); POTASSIUM SERUM 4.2 MEQ/L (3.5-5.1); SODIUM LEVEL 138 MEQ/L (136-145)
[2018-11-27] MEDS ORDERED: DILUENT IV ONE (13:45)
[2018-11-27] MEDS ORDERED: NACL IV ONE (13:45)
[2018-11-27] MEDS ORDERED: KETAMINE IV ONE (13:45)
--- NOTE | 2018-11-27 13:45 | REP ---
Renal ultrasound: The patient has history of medullary sponge kidney and renal calculi and complains of left flank pain and renal colic: The right kidney measures 10.6 x 6.3 x 4.5 cm. The left kidney measures 11.2 x 5.6 x 4.6 cm. The kidneys are normal size. There is no hydronephrosis on the right on the left. There is no hydroureter on the right on the left. There are two nonobstructive calculi in the lower pole left kidney measuring 6 x 3 mm and measuring 8 x 8 mm. Bladder: The the bladder is nondistended and cannot be further evaluated. Impression: There are two nonobstructive calculi in the lower pole of the left kidney. There is no hydronephrosis on the right on the left. There are no renal solid masses or cysts. The bladder is nondistended and cannot be further evaluated at this time. Electronically Signed by Efraín Parrish MD 11/27/2018 01:37 P
[2018-11-27] MEDS ORDERED: ONDA4TAB6 PO (14:55)
[2018-11-27 14:59] VITALS: BP 107/54
== END 2018-11-27 15:19 | disposition home or self-care (01) ==
LOC: M ED 12:13
DX: N20.0 Calculus of kidney (principal); Z79.899 Other long term (current) drug therapy
CPT/HCPCS: 76775; 80048; 81001; 85025; 96365; 96375; 99284; J1885; J2405

== ENCOUNTER → 2018-11-30 | Outpatient (CLI) | payer BC ==
[~2018-11-30] MED LIST changes: +ONDA4TAB6 PO
--- NOTE | 2018-11-30 08:08 | REP ---
CT of the abdomen pelvis without IV or bowel contrast for renal calculus: Comparison is to 05/21/2018. There is a nonobstructive 6 ml calculus in the left renal pelvis, unchanged. There is a 4 ml nonobstructive calculus in the left renal pelvis, not present previously. There is a 3 mm calculus in the left renal parenchyma at the mid pole, not present previously. There are no right renal calculi. There are no ureteral calculi on the right or the left. There is a tiny phlebolith in the left adnexa, unchanged. There is no hydronephrosis or hydroureter. There are no bladder calculi. The previous adnexal cyst is no longer identified. There is a hysterectomy. This is unchanged. The visualized lung unger are unremarkable. The hepatic parenchyma, gallbladder, pancreas, spleen, adrenals, abdominal aorta, bowel and mesentery are unremarkable. Pelvis: The appendix is unremarkable. There is no ascites or adenopathy. The pelvic bowel loops are unremarkable. There is a hysterectomy. The previous pelvic cyst is no longer identified. Impression: There are nonobstructive left renal calculi as described. No ureteral or bladder calculi. The previous pelvic cyst is no longer identified. Hysterectomy. Electronically Signed by Efraín Parrish MD 11/30/2018 08:00 A
== END ==
LOC: M RAD 07:07
PROVIDERS: ATTEND Nurse Practitioner Family
DX: N20.0 Calculus of kidney (principal); Z90.710 Acquired absence of both cervix and uterus

== ENCOUNTER → 2018-12-24 | Outpatient (REF) | payer BC ==
[~2018-12-24] MED LIST changes: +CETI10CA2 PO; +MAGN400T2 PO
[2018-12-25 14:32] LABS: APPEARANCE, URINE TURBID (CLEAR); BACTERIA, URINE AUTO NEGATIVE (NEGATIVE); BILIRUBIN, URINE AUTO NEGATIVE (NEGATIVE); BLOOD, URINE BLOOD 1+ (NEGATIVE); CALCIUM OXALATE CRYSTALS MODERATE; COLOR, URINE AMBER (YELLOW); GLUCOSE, URINE (UA) AUTO NEGATIVE (NEGATIVE); KETONE, URINE AUTO NEGATIVE (NEGATIVE); LEUKOCYTE ESTERASE, URINE AUTO NEGATIVE (NEGATIVE); MUCUS, URINE LARGE (NEGATIVE); NITRITE, URINE AUTO NEGATIVE (NEGATIVE); PROTEIN, URINE AUTO NEGATIVE (NEGATIVE); RBC, URINE AUTO 13 /HPF (0-3); SPECIFIC GRAVITY URINE AUTO 1.025 (1.002-1.035); SQUAMOUS EPITHELIAL CELL UR AU 3 /HPF (0-6); UROBILINOGEN, URINE AUTO 0.2 mg/dL (0.0-2.0); WBC, URINE AUTO 2 /HPF (0-3)
== END ==
LOC: M SMT 13:18
PROVIDERS: ATTEND Nurse Practitioner Family
DX: Z01.818 Encounter for other preprocedural examination (principal); N20.0 Calculus of kidney

== ENCOUNTER → 2018-12-25 | Outpatient (CLI) | payer BC ==
[2018-12-25 16:43] LABS: HEMATOCRIT 38.9 % (36.0-47.0); HEMOGLOBIN 12.4 g/dl (12.0-15.5); MEAN CORPUSCULAR HEMOGLOBIN 27.9 pg (27.0-33.0); MEAN CORPUSCULAR HGB CONC 31.9 g/dl (32.0-36.5); MEAN CORPUSCULAR VOLUME 87.4 fl (80.0-96.0); PLATELET COUNT, AUTOMATED 342 10^3/uL (150-450); RED BLOOD COUNT 4.45 10^6/uL (4.00-5.40); WHITE BLOOD COUNT 7.2 10^3/uL (4.0-10.0)
[2018-12-25 16:57] LABS: INR 0.98; PROTHROMBIN TIME 13.1 SECONDS (12.1-14.4)
[2018-12-25 17:28] LABS: BLOOD UREA NITROGEN 11 MG/DL (7-18); CARBON DIOXIDE LEVEL 27 MEQ/L (21-32); CHLORIDE LEVEL 105 MEQ/L (98-107); CREATININE FOR GFR 0.73 MG/DL (0.55-1.30); GLOMERULAR FILTRATION RATE > 60.0 (>60); GLUCOSE, FASTING 77 MG/DL (70-100); POTASSIUM SERUM 4.2 MEQ/L (3.5-5.1); SODIUM LEVEL 138 MEQ/L (136-145)
== END ==
LOC: M LAB 15:45
PROVIDERS: ATTEND Nurse Practitioner Family
DX: Z01.818 Encounter for other preprocedural examination (principal); N20.0 Calculus of kidney

== ENCOUNTER 2018-12-27 07:42 | Day surgery (SDC) | payer BC ==
[~2018-12-27] VITALS: Ht 157.5 cm; Wt 84.1 kg
[~2018-12-27 07:42] MED LIST changes: +LR 1,000 ML IV ONE
[2018-12-27] MEDS ORDERED: LIDOCAINE 2% INJ 100 MG/5 ML SDV (FOR ANES.) As Ordered ONE (09:45)
[2018-12-27] MEDS ORDERED: MIDAZOLAM INJ 2 MG/2 ML VIAL (J2250) As Ordered ONE (09:46)
[2018-12-27] MEDS ORDERED: fentaNYL 100 MCG/2 ML INJECTION (J3010) As Ordered ONE (09:46)
[2018-12-27] MEDS ORDERED: PROPOFOL 500 MG/50 ML VIAL As Ordered ONE (09:46)
[2018-12-27] MEDS ORDERED: ONDANSETRON 4MG/2ML VIAL (J2405) As Ordered ONE (10:35)
[2018-12-27] MEDS ORDERED: KETOROLAC 60 MG/2 ML VIAL (J1885) As Ordered ONE (10:35)
[2018-12-27] MEDS ORDERED: METOCLOPRAMIDE INJ 10MG/2ML VIAL (J2765) As Ordered ONE (10:35)
[2018-12-27] MEDS ORDERED: dexameTHASONE 4 MG/ML 1ML VIAL (J1100) As Ordered ONE ×2 (10:35→10:36)
--- NOTE | 2018-12-27 11:05 | ROOPDOC ---
[facility] Report Of Operation Report of Operation DATE OF PROCEDURE: 12/27/18 PREPROCEDURE DIAGNOSIS: Left kidney stones. POSTPROCEDURE DIAGNOSIS: Left kidney stones. PROCEDURE: Left extracorporeal shock wave lithotripsy. SURGEON: Charles Powers MD INTERNET SALESPERSON: None ANESTHESIA: MAC. OPERATIVE INDICATIONS: This is a 33-year-old female who was found to left kidney stones measuring up to 6mm in size. She is here today for treatment of her left sided kidney stones. DESCRIPTION OF PROCEDURE: The patient was brought to the operating room where MAC anesthesia was administered. Prophylactic antibiotics were infused. She was then placed in the supine position in preparation for a left-sided extracorporeal shock wave lithotripsy. Fluoroscopy was utilized to monitor stone position and fragmentation throughout the procedure. She had 2 kidney stones with the largest one measuring 6mm in size. Shock waves were then delivered to the left-sided kidney stones, ungated. The largest stone were shocked first and then the smaller one was shocked. There were no arrhythmias. The stones did appear to fragment well. After 2500 shocks, the procedure was concluded. The patient was then awakened from anesthesia and transported to the recovery room in stable condition. Estimated blood loss: 0 mL. Complications: None. Specimens: None. Plan: The patient will followup in the clinic in a few weeks with imaging prior to assess for residual stone burden. CHARLES POWERS MD December 27, 2018 11:05
[2018-12-27 11:58] VITALS: BP 109/55
--- NOTE | 2018-12-27 16:35 | REP ---
KUB: Single view. History: Kidney stone. Comparison is made with CT study from November 30, 2018. Findings: There are calcific opacities overlying the lower pole left kidney. The largest of these measures 8 mm in greatest diameter. No other urinary tract calculus is seen. Psoas margins and flank stripes are intact. Bowel gas pattern is normal. Impression: Intrarenal nephrolithiasis left kidney. Electronically Signed by Carlos Arciniega MD 12/27/2018 04:53 P
== END 2018-12-27 12:02 | disposition home or self-care (01) ==
LOC: M SDC 07:42
PROVIDERS: ATTEND Urology
DX: N20.0 Calculus of kidney (principal); M45.9 Ankylosing spondylitis of unspecified sites in spine; K58.8 Other irritable bowel syndrome; F32.9 Major depressive disorder, single episode, unspecified; Z79.899 Other long term (current) drug therapy
CPT/HCPCS: 50590; 74018; J0690; J1100; J1885; J2250; J2405; J2765; J3010

== ENCOUNTER → 2019-01-21 | Outpatient (CLI) | payer BC ==
[~2019-01-21] MED LIST changes: -LR 1,000 ML IV ONE
--- NOTE | 2019-01-22 02:19 | REP ---
Clinical: Nephrolithiasis. Technique: Two supine views of the abdomen and pelvis. Findings: 11 mm calculus overlies the upper pole left kidney along with smaller left renal calculi measuring up to approximately 4 mm. Evaluation of the right kidney is significantly limited due to overlying bowel gas. No evidence for bowel obstruction. No organomegaly. Skeletal structures intact. Impression: Left-sided nephroliths. Right kidney cannot be evaluated due to overlying bowel gas. Electronically Signed by Sourav Aponte MD 01/22/2019 02:10 A
== END ==
LOC: M RAD 11:57
PROVIDERS: ATTEND Nurse Practitioner Family
DX: N20.0 Calculus of kidney (principal)

== ENCOUNTER → 2019-01-22 | Outpatient (REF) | payer BC ==
[2019-01-28 16:31] LABS: CA Oxalate Dihy 25 % (.); Ca Ox Monohydrate 15 % (.)
== END ==
LOC: M SMT 10:02
PROVIDERS: ATTEND Nurse Practitioner Family
DX: N20.0 Calculus of kidney (principal)

== ENCOUNTER → 2019-02-28 | Outpatient (REF) | payer BC ==
[2019-03-08 14:07] LABS: CA Oxalate Dihy 50 % (.); COMMENT Note: (.); Ca Ox Monohydrate 10 % (.)
== END ==
LOC: M LAB REF 17:18
PROVIDERS: ATTEND Internal Medicine Nephrology
DX: N20.0 Calculus of kidney (principal)

== ENCOUNTER → 2019-03-07 | Outpatient (CLI) | payer BC ==
--- NOTE | 2019-03-07 15:53 | REP ---
KUB: Single view. History: Kidney stone. Comparison KUB study: January 21, 2019. Findings: The bowel gas pattern is unremarkable. There are two calcific opacities superimposed in the left kidney, the largest of which is 8 mm in diameter. No other urinary tract calculus is appreciated. Flank stripes are intact. Psoas margins are symmetric. Impression: Calcific opacities overlying the left kidney silhouette. Electronically Signed by Carlos Arciniega MD 03/07/2019 07:24 P
== END ==
LOC: M RAD 13:48
PROVIDERS: ATTEND Urology
DX: N20.0 Calculus of kidney (principal)

== ENCOUNTER → 2019-10-07 | Outpatient (CLI) | payer BC ==
[~2019-10-07] MED LIST changes: -OMEP40CA2 PO; +OMEP40CA97 PO; -SERT-155; +SERT50TA29; -TRAZ-163 PO; +TRAZ-257 PO
--- NOTE | 2019-10-07 18:27 | REP ---
Clinical: Kidney stone. Technique: Two supine views of the abdomen and pelvis. Findings: Evaluation is limited by overlying bowel gas pattern. However there appears to be a 7 mm nonobstructing left renal calculus. Further nephroureterolithiasis cannot be excluded. No evidence for bowel obstruction. No organomegaly. Skeletal structures intact. Impression: 7 mm nonobstructing right ureteral calculus. Electronically Signed by Sourav Aponte MD 10/07/2019 06:18 P
[2019-10-07 20:20] LABS: BLOOD UREA NITROGEN 10 MG/DL (7-18); CALCIUM LEVEL 8.7 MG/DL (8.5-10.1); CARBON DIOXIDE LEVEL 26 MEQ/L (21-32); CHLORIDE LEVEL 104 MEQ/L (98-107); CREATININE FOR GFR 0.75 MG/DL (0.55-1.30); FREE T4 1.07 NG/DL (0.76-1.46); GLOMERULAR FILTRATION RATE > 60.0 (>60); GLUCOSE, FASTING 75 MG/DL (70-100); MAGNESIUM LEVEL 2.2 MG/DL (1.8-2.4); POTASSIUM SERUM 3.5 MEQ/L (3.5-5.1); SODIUM LEVEL 138 MEQ/L (136-145)
[2019-10-07 20:22] LABS: TOTAL 25(OH) VITAMIN D 29.1 NG/ML (30.0-100.0)
== END ==
LOC: M WUC 17:05
PROVIDERS: ATTEND Nurse Practitioner Family
DX: N20.0 Calculus of kidney (principal); E04.1 Nontoxic single thyroid nodule

== ENCOUNTER → 2019-10-21 | Outpatient (CLI) | payer BC ==
--- NOTE | 2019-10-21 14:44 | REPVR ---
PROCEDURE INFORMATION: Exam: CT Abdomen And Pelvis Without Contrast Exam date and time: 10/21/2019 2:04 PM Age: 34 years old Clinical indication: Other: Stones; Additional info: Kidney stone TECHNIQUE: Imaging protocol: Computed tomography of the abdomen and pelvis without contrast. Radiation optimization: All CT scans at this facility use at least one of these dose optimization techniques: automated exposure control; mA and/or kV adjustment per patient size (includes targeted exams where dose is matched to clinical indication); or iterative reconstruction. COMPARISON: CT ABD PELVIS W/O CONTRAST 11/30/2018. FINDINGS: Liver: Normal. No mass. Gallbladder and bile ducts: Normal. No calcified stones. No ductal dilation. Pancreas: Normal. No ductal dilation. Spleen: Spleen is normal in size. There is a 1.5 cm splenule. Adrenals: Normal. No mass. Kidneys and ureters: There is a 6 x 5 x 5 mm nonobstructing stone in the mid left kidney. The kidneys and ureters are otherwise unremarkable. Stomach and bowel: Unremarkable. No obstruction. No mucosal thickening. The stomach is full of food. Appendix: The appendix is normal in caliber without surrounding inflammation. Intraperitoneal space: No free air or free fluid in the abdomen or pelvis. Vasculature: Unremarkable. No abdominal aortic aneurysm. Lymph nodes: Unremarkable. No enlarged lymph nodes. Bladder: Urinary bladder is normal without wall thickening, mass or stone. Reproductive: Hysterectomy. Bones/joints: Unremarkable. No acute fracture. Soft tissues: Unremarkable. Obesity. IMPRESSION: 1. No acute abnormality in the abdomen or pelvis. 2. There is a 6 x 5 x 5 mm nonobstructing stone in the mid left kidney. The kidneys and ureters are otherwise unremarkable. 3. Hysterectomy. Electronically signed by: Braden Kaiser On 10/21/2019 14:44:20 PM
== END ==
LOC: M RAD 13:54
PROVIDERS: ATTEND Nurse Practitioner Family
DX: N20.0 Calculus of kidney (principal)

== ENCOUNTER 2019-11-26 14:02 | Emergency (ER) | payer BC ==
[~2019-11-26] VITALS: Ht 157.5 cm; Wt 95.5 kg
[2019-11-26] MEDS ORDERED: POTA10808 (14:22)
[2019-11-26] MEDS ORDERED: COSE1INJ (14:22)
[2019-11-26] MEDS ORDERED: META1TAB22 (14:22)
[2019-11-26] MEDS ORDERED: GABA-1171 (14:22)
[2019-11-26] MEDS ORDERED: DICY20TA11 (14:22)
[2019-11-26] MEDS ORDERED: DULO1CAP6 (14:22)
[2019-11-26] MEDS ORDERED: NS 500 ML IV ONE (14:45)
[2019-11-26 15:04] LABS: BASO % 0.2 % (0.0-1.0); EOS # 0.1 10^3/uL (0.0-0.5); EOS % 1.3 % (0.0-3.0); HEMATOCRIT 38.2 % (36.0-47.0); HEMOGLOBIN 12.5 g/dl (12.0-15.5); LYMPH # 0.7 10^3/uL (1.5-5.0); LYMPH % 7.7 % (24.0-44.0); MEAN CORPUSCULAR HEMOGLOBIN 27.7 pg (27.0-33.0); MEAN CORPUSCULAR HGB CONC 32.7 g/dl (32.0-36.5); MEAN CORPUSCULAR VOLUME 84.5 fl (80.0-96.0); MONO # 0.8 10^3/uL (0.0-0.8); MONO % 7.8 % (0.0-5.0); NEUTROPHILS % 82.5 % (36.0-66.0); PLATELET COUNT, AUTOMATED 349 10^3/uL (150-450); RED BLOOD COUNT 4.52 10^6/uL (4.00-5.40); WHITE BLOOD COUNT 9.7 10^3/uL (4.0-10.0)
[2019-11-26 15:42] LABS: ALBUMIN 3.5 GM/DL (3.2-5.2); ALT/SGPT 20 U/L (12-78); BILIRUBIN,DIRECT 0.2 MG/DL (0.0-0.2); BILIRUBIN,TOTAL 0.6 MG/DL (0.2-1.0); BLOOD UREA NITROGEN 11 MG/DL (7-18); CALCIUM LEVEL 8.4 MG/DL (8.5-10.1); CARBON DIOXIDE LEVEL 27 MEQ/L (21-32); CHLORIDE LEVEL 101 MEQ/L (98-107); CK-MB VALUE MASS 1.6 NG/ML (<3.6); CPK CREATINE PHOSPHOKINASE 84 U/L (26-192); CREATININE FOR GFR 0.75 MG/DL (0.55-1.30); GLOMERULAR FILTRATION RATE > 60.0 (>60); GLUCOSE, FASTING 92 MG/DL (70-100); NT-PRO BNP 7 PG/ML (<125); POTASSIUM SERUM 3.6 MEQ/L (3.5-5.1); SODIUM LEVEL 135 MEQ/L (136-145); TOTAL PROTEIN 7.7 GM/DL (6.4-8.2); TROPONIN I < 0.02 NG/ML (< 0.10)
--- NOTE | 2019-11-26 15:46 | REP ---
CHEST, SINGLE VIEW: There is no evidence of acute infiltrate. No pleural effusion is seen. The heart is normal in size. The mediastinal silhouette is unremarkable. The visualized osseous structures are intact. IMPRESSION: No acute pulmonary disease. Electronically Signed by Efraín Almaraz MD 11/26/2019 03:48 P
[2019-11-26 16:19] VITALS: BP 158/93
--- NOTE | 2019-11-27 10:31 | ECGEPIP ---
[facility] - ED Test Date: 2019-11-26 Pat Name: DELIA CONNELL Department: Room: - Gender: Female Identity Management Developer: [email or web address] : [email or web address] Requested By: Julianna Mendiola Order Number: [id number] Reading MD: Joseph Martinez Measurements Intervals [facility] Rate: 89 P: 39 HI: 147 QRS: 8 QRSD: 89 T: 6 QT: 392 QTc: 478 Interpretive Statements SINUS RHYTHM LOW QRS VOLTAGE IN PRECORDIAL LEADS POOR R WAVE PROGRESSION SIMILAR TO 03/26/16 Electronically Signed on 11-27-2019 10:31:29 EDT by Joseph Martinez
== END 2019-11-26 16:43 | disposition home or self-care (01) ==
LOC: M ED 14:02
DX: R05 Cough (principal); R06.00 Dyspnea, unspecified; M45.9 Ankylosing spondylitis of unspecified sites in spine; G43.909 Migraine, unspecified, not intractable, without status migrainosus; K21.9 Gastro-esophageal reflux disease without esophagitis; Z79.899 Other long term (current) drug therapy
CPT/HCPCS: 71045; 80048; 80076; 82550; 82553; 83605; 83880; 84443; 84484; 85025; 85379; 87040; 87486; 87581; 87633; 87798; 93005; 93041; 94760; 96360; 99284; U0002

== ENCOUNTER → 2019-12-20 | Outpatient (CLI) | payer BC ==
[~2019-12-20] MED LIST changes: +COSE1INJ; +DICY20TA11; +DULO1CAP6; +GABA-1171; +META1TAB22; +POTA10808
== END ==
LOC: M SLEEP HO 11:45
PROVIDERS: ATTEND Physician Assistant
DX: G47.10 Hypersomnia, unspecified (principal)

== ENCOUNTER → 2020-06-28 | Outpatient (CLI) | payer SELFPAY ==
[~2020-06-28] MED LIST changes: +SUMA1TAB14 PO; -TREX50TA PO
== END ==
LOC: M LABSMTC 09:04
PROVIDERS: ATTEND Pediatrics
DX: Z20.828 Contact with and (suspected) exposure to other viral communicable diseases (principal)
CPT/HCPCS: C9803; U0002

== ENCOUNTER → 2020-08-17 | Outpatient (REF) | payer BC | LOC: M LAB REF 15:55 | PROVIDERS: ATTEND Physician Assistant | DX: L93.2 Other local lupus erythematosus (principal) ==

== ENCOUNTER → 2020-09-15 | Outpatient (CLI) | payer SELFPAY ==
[~2020-09-15] MED LIST changes: -DICY20TA PO; +DICY20TA3 PO; +SIME80CH5 PO; -SIME80TA PO
== END ==
LOC: M LABSMTC 09:43
PROVIDERS: ATTEND Family Medicine
DX: Z20.822 Contact with and (suspected) exposure to COVID-19 (principal)

== ENCOUNTER → 2020-10-01 | Outpatient (REF) | LOC: M LABSMTC 09:56 | PROVIDERS: ATTEND Pediatrics | DX: Z20.822 Contact with and (suspected) exposure to COVID-19 (principal) ==

== ENCOUNTER → 2020-10-23 | Outpatient (REF) | LOC: M LABSMTC 11:36 | PROVIDERS: ATTEND Pediatrics | DX: Z11.52 Encounter for screening for COVID-19 (principal) ==

== ENCOUNTER → 2020-10-27 | Outpatient (CLI) | payer BC ==
--- NOTE | 2020-10-27 19:18 | REP ---
INDICATION: CALCULUS OF KIDNEY, MEDULLARY CYSTIC KIDNEY, STONE PROTOCOL COMPARISON: 10/21/2019 TECHNIQUE: Axial noncontrast images from the lung bases to the pubic symphysis with coronal and sagittal reformations. This CT examination was performed using the following dose reduction techniques: Automated exposure control, adjustment of mA and/or kv according to the patient's size, and use of iterative reconstruction technique. FINDINGS: Right kidney/ureter and bladder appear normal. Left kidney includes stable 4 mm nonobstructing nephrolith. There is no evidence for hydroureteronephrosis, obstructing ureteral calculi, perinephric or periureteral stranding to either kidney. Liver, spleen, pancreas, gallbladder, and bilateral adrenal glands are normal for noncontrast evaluation. The enteric system is without obstruction or acute inflammatory process. Normal terminal ileum and appendix are identified in the right lower quadrant. Scattered sigmoid diverticula noted without acute diverticulitis. Pelvis demonstrates normal bladder and evidence for prior hysterectomy. No pelvic fluid or ascites. No free air. No adenopathy. Abdominal aorta without aneurysm. Musculoskeletal structures are intact and without acute osseous abnormality. Lung bases are clear. IMPRESSION: 1. Stable 4 mm calculus in the left kidney. No further urinary tract pathology appreciated. 2. Scattered sigmoid diverticula without acute diverticulitis. 3. No further acute abdominopelvic pathology appreciated. <Electronically signed by Sourav Aponte > 10/27/201913
== END ==
LOC: M RAD 16:51
PROVIDERS: ATTEND Nurse Practitioner Family
DX: N20.0 Calculus of kidney (principal); Q61.5 Medullary cystic kidney

== ENCOUNTER → 2021-03-24 | Outpatient (CLI) | payer BC ==
[~2021-03-24] MED LIST changes: +OMEP40CA4 PO; -OMEP40CA97 PO
--- NOTE | 2021-03-24 14:30 | REP ---
INDICATION: PVD COMPARISON: None. TECHNIQUE: Real time almaraz scale and Duplex Doppler evaluation of the bilateral lower extremity arterial vasculature using linear high frequency transducer. FINDINGS: Almaraz scale and duplex doppler images demonstrate CLOVIS bilaterally 0.89. there is no significant plaquing or stenosis of the bilateral lower extremity arterial systems. Triphasic waveforms are seen diffusely bilaterally. On the right the posterior tibial artery origin is not visualized. The peroneal artery appears to extend to the ankle and traverses anteriorly to the medial malleolus. On the left posterior tibial artery is small in caliber with slow flow. Collateral vessels feed the posterior tibial artery at the medial malleolus. Posterior tibial artery traverses into the foot. Peak systolic velocities (cm/sec) Common femoral artery: Right 92; Left 70 Profunda femoris: Right 62; Left 76 SFA (proximal): Right 69; Left 76 SFA (mid): Right 88; Left 100 SFA (distal): Right 49; Left 74 Popliteal artery: Right 33; Left 32 ESTELITA (prox.): Right 41; Left 43 Tibioperoneal trunk: Right 37; Left 32 POLE INCISOR OPERATOR (prox.): Right not seen; Left 56 POLE INCISOR OPERATOR (distal): Right 51; Left 47 ESTELITA (distal): Right 30; Left 35 IMPRESSION: No significant plaquing or stenosis of the bilateral lower extremity arterial systems. On the right the peroneal artery appears to extend to the ankle and traverses anteriorly to the medial malleolus. On the left the posterior tibial artery is small in caliber with collateral vessels contributing supply at the medial malleolus. <Electronically signed by Efraín Almaraz > 03/24/21 [id number]
== END ==
LOC: M RAD 11:18
PROVIDERS: ATTEND Physician Assistant
DX: I73.89 Other specified peripheral vascular diseases (principal)

== ENCOUNTER → 2021-04-09 | Outpatient (CLI) | payer BC ==
[~2021-04-09] MED LIST changes: +ISOVUE-370 76% 100ML VIAL As Ordered ONE
== END ==
LOC: M RAD 17:30
PROVIDERS: ATTEND Physician Assistant
DX: I73.89 Other specified peripheral vascular diseases (principal)
CPT/HCPCS: 75635; Q9967

== ENCOUNTER → 2021-04-22 | Outpatient (REF) | payer BC ==
[~2021-04-22] MED LIST changes: -ISOVUE-370 76% 100ML VIAL As Ordered ONE
== END ==
LOC: M LAB REF 17:15
PROVIDERS: ATTEND Nurse Practitioner Family
DX: E83.42 Hypomagnesemia (principal)

== ENCOUNTER → 2021-04-27 | Outpatient (REF) | LOC: M EMP 12:07 | PROVIDERS: ATTEND Family Medicine | DX: Z20.822 Contact with and (suspected) exposure to COVID-19 (principal) ==

== ENCOUNTER → 2021-04-30 | Outpatient (REF) | LOC: M LABSMTC 10:12 | PROVIDERS: ATTEND Pediatrics | DX: Z20.822 Contact with and (suspected) exposure to COVID-19 (principal) ==

== ENCOUNTER 2021-07-19 08:25 | Outpatient (RCR) | END 2021-07-19 15:00 | disposition home or self-care (01) | LOC: M EMP 08:25 | PROVIDERS: ATTEND Pediatrics | DX: Z11.52 Encounter for screening for COVID-19 (principal) ==

== ENCOUNTER 2021-10-05 21:31 | Emergency (ER) | payer BC ==
[~2021-10-05] VITALS: Ht 157.5 cm; Wt 104.5 kg
[~2021-10-05 21:31] MED LIST changes: -DICY20TA11; -DICY20TA11 PO; +DICY20TA20; +DICY20TA20 PO
[2021-10-05] MEDS ORDERED: NS 1,000 ML IV ONE (21:35)
[2021-10-05] MEDS ORDERED: MORPHINE 4 MG/ML 1ML VIAL/SYRINGE (J2270) IV PRN (21:40)
[2021-10-05] MEDS ORDERED: ONDANSETRON 4MG/2ML VIAL IV ONE (21:40)
[2021-10-05 22:04] LABS: BASO # 0.1 10^3/uL (0.0-0.2); BASO % 0.4 % (0.0-1.0); EOS # 0.2 10^3/uL (0.0-0.5); EOS % 1.9 % (0.0-3.0); HEMATOCRIT 40.7 % (36.0-47.0); HEMOGLOBIN 13.1 g/dl (12.0-15.5); LYMPH # 1.8 10^3/uL (1.5-5.0); LYMPH % 15.7 % (24.0-44.0); MEAN CORPUSCULAR HEMOGLOBIN 26.4 pg (27.0-33.0); MEAN CORPUSCULAR HGB CONC 32.2 g/dl (32.0-36.5); MEAN CORPUSCULAR VOLUME 82.1 fl (80.0-96.0); MONO # 1.2 10^3/uL (0.0-0.8); MONO % 10.5 % (2.0-8.0); NEUTROPHILS # 8.1 10^3/uL (1.5-8.5); NEUTROPHILS % 71.1 % (36.0-66.0); PLATELET COUNT, AUTOMATED 430 10^3/uL (150-450); RED BLOOD COUNT 4.96 10^6/uL (4.00-5.40); WHITE BLOOD COUNT 11.4 10^3/uL (4.0-10.0)
[2021-10-05] MEDS ORDERED: KETOROLAC 30 MG/ML 1ML VIAL IV ONE (22:15)
[2021-10-05 22:30] LABS: ALBUMIN 3.8 GM/DL (3.2-5.2); BILIRUBIN,DIRECT 0.1 MG/DL (0.0-0.2); BILIRUBIN,TOTAL 0.5 MG/DL (0.2-1.0); TOTAL PROTEIN 7.1 GM/DL (6.4-8.2)
[2021-10-05] MEDS ORDERED: HYDROMORPHONE HCL 0.5 MG/ 0.5 ML SYRINGE (J1170 PER 1) IV PRN (22:35)
[2021-10-05] MEDS ORDERED: cefTRIAXone SOD 1 GM in D5W MINI-BAG PLUS 50 ML IV ONE (23:25)
[2021-10-05] MEDS ORDERED: PERC5TAB12 PO (23:33)
[2021-10-05] MEDS ORDERED: KETO10TAB PO (23:33)
[2021-10-05] MEDS ORDERED: FLOM0.4C39 PO (23:33)
[2021-10-05] MEDS ORDERED: ONDA4TAB6 PO (23:33)
[2021-10-05] MEDS ORDERED: CEFD300C41 PO (23:33)
[2021-10-05 23:45] VITALS: BP 130/67
[2021-10-06] MEDS ORDERED: OXYCODONE/APAP 5MG/325MG(BULK FOR ED) 1 TABLET PO ONE
== END 2021-10-06 00:38 | disposition home or self-care (01) ==
LOC: M ED 21:31
DX: N20.1 Calculus of ureter (principal); G43.909 Migraine, unspecified, not intractable, without status migrainosus; K21.9 Gastro-esophageal reflux disease without esophagitis; K58.9 Irritable bowel syndrome, unspecified; M45.9 Ankylosing spondylitis of unspecified sites in spine; Z79.899 Other long term (current) drug therapy
CPT/HCPCS: 74176; 80047; 80076; 81001; 83605; 83690; 85025; 93041; 96361; 96365; 96375; 99284; J0696; J1170; J1885; J2270; J2405

== ENCOUNTER → 2022-01-18 | Outpatient (CLI) | payer BC ==
[~2022-01-18] MED LIST changes: +CEFD300C41 PO; +FLOM0.4C39 PO
== END ==
LOC: M RAD 14:18
PROVIDERS: ATTEND Internal Medicine
DX: M25.572 Pain in left ankle and joints of left foot (principal)

== ENCOUNTER → 2022-03-18 | Outpatient (CLI) | payer BC | LOC: M PLAIMG 13:54 | PROVIDERS: ATTEND Family Medicine | DX: M75.41 Impingement syndrome of right shoulder (principal) ==

== ENCOUNTER → 2023-05-12 | Outpatient (REF) | payer OTHER ==
[~2023-05-12] MED LIST changes: +TOPI-254 PO; -TOPI50TA9 PO
[2023-05-12 20:32] LABS: BASO # 0.1 10^3/uL (0.0-0.2); BASO % 0.7 % (0.0-1.0); EOS # 0.2 10^3/uL (0.0-0.5); EOS % 2.4 % (0.0-3.0); HEMATOCRIT 43.4 % (36.0-47.0); LYMPH # 1.5 10^3/uL (1.5-5.0); LYMPH % 19.2 % (24.0-44.0); MEAN CORPUSCULAR HEMOGLOBIN 27.2 pg (27.0-33.0); MEAN CORPUSCULAR HGB CONC 32.3 g/dl (32.0-36.5); MEAN CORPUSCULAR VOLUME 84.3 fl (80.0-96.0); MONO # 0.6 10^3/uL (0.0-0.8); MONO % 7.4 % (2.0-8.0); NEUTROPHILS # 5.3 10^3/uL (1.5-8.5); PLATELET COUNT, AUTOMATED 426 10^3/uL (150-450); RED BLOOD COUNT 5.15 10^6/uL (4.00-5.40); WHITE BLOOD COUNT 7.5 10^3/uL (4.0-10.0)
[2023-05-12 21:02] LABS: ALBUMIN 4.1 G/DL (3.2-5.2); ALKALINE PHOSPHATASE 76 U/L (46-116); ALT/SGPT 14 U/L (7.0-40); AST/SGOT 16 U/L (<34); BILIRUBIN,TOTAL 0.5 MG/DL (0.3-1.2); BLOOD UREA NITROGEN 12 MG/DL (9-23); CALCIUM LEVEL 9.3 MG/DL (8.5-10.1); CARBON DIOXIDE LEVEL 30 MMOL/L (20-31); CHLORIDE LEVEL 104 MMOL/L (98-107); CHOLESTEROL LEVEL 214 MG/DL (<200); CHOLESTEROL RISK RATIO 3.29 (<5); CREATININE FOR GFR 0.81 MG/DL (0.55-1.30); GLOMERULAR FILTRATION RATE > 60.0 (>60); GLUCOSE, FASTING 70 MG/DL (60-100); LDL CHOLESTEROL 118.2 MG/DL (<100); POTASSIUM SERUM 3.5 MMOL/L (3.5-5.1); SODIUM LEVEL 140 MMOL/L (136-145); TOTAL PROTEIN 7.5 G/DL (5.7-8.2); TRIGLYCERIDES LEVEL 154 MG/DL (<150)
[2023-05-12 21:04] LABS: FREE T4 1.07 NG/DL (0.89-1.76); HEMOGLOBIN A1c 4.5 % (4.0-6.0); THYROID STIMULATING HORMONE 4.875 uIU/ML (0.55-4.78)
[2023-05-12 22:00] LABS: TOTAL 25(OH) VITAMIN D 33.2 NG/ML (20.0-100.0)
== END ==
LOC: M LAB REF 20:12
PROVIDERS: ATTEND Physician Assistant
DX: Z13.29 Encounter for screening for other suspected endocrine disorder (principal); Z13.220 Encounter for screening for lipoid disorders; E55.9 Vitamin D deficiency, unspecified

== ENCOUNTER → 2024-02-21 | Outpatient (CLI) | payer OTHER ==
[~2024-02-21] MED LIST changes: +CEFD1CAP9 PO; -CEFD300C41 PO; +ONDA-282 PO; -ONDA4TAB6 PO; +REGL10TA6 PO; +TOPI-21 PO; -TOPI-254 PO
[2024-02-21 16:04] LABS: BASO # 0.1 10^3/uL (0.0-0.2); BASO % 0.7 % (0.0-1.0); EOS # 0.1 10^3/uL (0.0-0.5); HEMATOCRIT 41.6 % (36.0-47.0); HEMOGLOBIN 13.3 g/dl (12.0-15.5); LYMPH # 1.5 10^3/uL (1.5-5.0); LYMPH % 21.1 % (24.0-44.0); MEAN CORPUSCULAR HEMOGLOBIN 27.5 pg (27.0-33.0); MONO # 0.5 10^3/uL (0.0-0.8); MONO % 7.4 % (2.0-8.0); NEUTROPHILS # 4.8 10^3/uL (1.5-8.5); NEUTROPHILS % 68.1 % (36.0-66.0); PLATELET COUNT, AUTOMATED 378 10^3/uL (150-450); RED BLOOD COUNT 4.84 10^6/uL (4.00-5.40); WHITE BLOOD COUNT 7.1 10^3/uL (4.0-10.0)
[2024-02-21 16:12] LABS: ERYTHROCYTE SEDIMENTATION RATE 25 mm/hr (0-20)
[2024-02-21 16:29] LABS: ALBUMIN 3.9 G/DL (3.2-5.2); ALKALINE PHOSPHATASE 77 U/L (46-116); ALT/SGPT 54 U/L (7.0-40); AST/SGOT 31 U/L (<34); BILIRUBIN,TOTAL 0.7 MG/DL (0.3-1.2); BLOOD UREA NITROGEN 14 MG/DL (9-23); CALCIUM LEVEL 9.1 MG/DL (8.5-10.1); CARBON DIOXIDE LEVEL 29 MMOL/L (20-31); CHLORIDE LEVEL 105 MMOL/L (98-107); CREATININE FOR GFR 0.71 MG/DL (0.55-1.30); GLOMERULAR FILTRATION RATE > 60.0 (>60); GLUCOSE, FASTING 78 MG/DL (60-100); POTASSIUM SERUM 3.6 MMOL/L (3.5-5.1); RHEUMATOID FACTOR QUANT 8.1 IU/ML (<14); SODIUM LEVEL 137 MMOL/L (136-145); TOTAL PROTEIN 6.9 G/DL (5.7-8.2)
[2024-02-21 16:31] LABS: THYROID STIMULATING HORMONE 2.237 uIU/ML (0.55-4.78); TOTAL 25(OH) VITAMIN D 33.2 NG/ML (20.0-100.0)
[2024-02-23 15:17] LABS: ANA SCREEN, IFA NEGATIVE (NEGATIVE)
== END ==
LOC: M LAB 15:18
PROVIDERS: ATTEND Psychiatry & Neurology Neurology
DX: R51.9 Headache, unspecified (principal)

== ENCOUNTER 2024-08-20 16:23 | Emergency (ER) | payer OTHER ==
[~2024-08-20] VITALS: Ht 157.5 cm; Wt 100.0 kg
[~2024-08-20 16:23] MED LIST changes: +META-10; -META1TAB22; -POTA10808; +POTA10809; -POTA540T PO; +POTA540T5 PO
[2024-08-20] MEDS: ONDANSETRON 4MG 2ML VIAL IV ONE (16:45)
[2024-08-20 16:52] LABS: BASO % 0.3 % (0.0-1.0); EOS # 0.1 10^3/uL (0.0-0.5); EOS % 1.3 % (0.0-3.0); HEMATOCRIT 40.8 % (36.0-47.0); HEMOGLOBIN 13.6 g/dl (12.0-15.5); LYMPH # 1.4 10^3/uL (1.5-5.0); LYMPH % 14.6 % (24.0-44.0); MEAN CORPUSCULAR HGB CONC 33.3 g/dl (32.0-36.5); MEAN CORPUSCULAR VOLUME 84.1 fl (80.0-96.0); MONO # 0.7 10^3/uL (0.0-0.8); MONO % 7.5 % (2.0-8.0); NEUTROPHILS # 6.9 10^3/uL (1.5-8.5); NEUTROPHILS % 72.7 % (36.0-66.0); PLATELET COUNT, AUTOMATED 340 10^3/uL (150-450); RED BLOOD COUNT 4.85 10^6/uL (4.00-5.40); WHITE BLOOD COUNT 9.5 10^3/uL (4.0-10.0)
[2024-08-20 17:13] LABS: LIPASE 30 U/L (12-53)
[2024-08-20 17:15] LABS: ALBUMIN 3.8 G/DL (3.2-5.2); ALKALINE PHOSPHATASE 71 U/L (35-104); ALT/SGPT 22 U/L (7.0-40); AST/SGOT 14 U/L (<34); BILIRUBIN,DIRECT 0.2 MG/DL (<0.4); BILIRUBIN,TOTAL 0.8 MG/DL (0.3-1.2); BLOOD UREA NITROGEN 13 MG/DL (9-23); CALCIUM LEVEL 9.3 MG/DL (8.5-10.1); CARBON DIOXIDE LEVEL 25 MMOL/L (20-31); CHLORIDE LEVEL 102 MMOL/L (98-107); CREATININE FOR GFR 0.62 MG/DL (0.55-1.30); GLOMERULAR FILTRATION RATE > 60.0 (>60); GLUCOSE, FASTING 89 MG/DL (60-100); POTASSIUM SERUM 3.6 MMOL/L (3.5-5.1); SODIUM LEVEL 138 MMOL/L (136-145); TOTAL PROTEIN 7.5 G/DL (5.7-8.2)
[2024-08-20] MEDS: KETOROLAC 30 MG/ML 1ML VIAL IV ONE (17:44)
[2024-08-20 18:20] LABS: APPEARANCE, URINE CLEAR (CLEAR); BACTERIA, URINE AUTO NEGATIVE (NEGATIVE); BILIRUBIN, URINE AUTO NEGATIVE (NEGATIVE); BLOOD, URINE BLOOD 1+ (NEGATIVE); COLOR, URINE YELLOW (YELLOW); GLUCOSE, URINE (UA) AUTO NEGATIVE (NEGATIVE); KETONE, URINE AUTO NEGATIVE (NEGATIVE); LEUKOCYTE ESTERASE, URINE AUTO NEGATIVE (NEGATIVE); MUCUS, URINE SMALL (NEGATIVE); NITRITE, URINE AUTO NEGATIVE (NEGATIVE); PROTEIN, URINE AUTO NEGATIVE (NEGATIVE); RBC, URINE AUTO 0 /HPF (0-3); SPECIFIC GRAVITY URINE AUTO 1.016 (1.002-1.035); SQUAMOUS EPITHELIAL CELL UR AU 1 /HPF (0-6); UROBILINOGEN, URINE AUTO 0.2 mg/dL (0.0-2.0); WBC, URINE AUTO 0 /HPF (0-3)
[2024-08-20] MEDS: MORPHINE 2 MG/ML 1ML VIAL IV ONE (18:28)
[2024-08-20] MEDS ORDERED: ISOVUE-370 76% 100ML VIAL As Ordered ONE (18:55)
[2024-08-20] MEDS ORDERED: GASTROGRAFIN SOLUTION 30ML PO SCH (19:15)
[2024-08-20] MEDS ORDERED: LEVS0.124 SL (20:09)
[2024-08-20] MEDS: HYOSCYAMINE SULFATE 0.125 MG SUBL TABLET PO ONE (20:10)
[2024-08-20 20:22] VITALS: BP 156/83; TEMP 97.6; O2SAT 98
== END 2024-08-20 20:24 | disposition home or self-care (01) ==
LOC: M ED 16:23
DX: K80.50 Calculus of bile duct without cholangitis or cholecystitis without obstruction (principal); K21.9 Gastro-esophageal reflux disease without esophagitis; F10.10 Alcohol abuse, uncomplicated; Z79.2 Long term (current) use of antibiotics; Z79.899 Other long term (current) drug therapy
CPT/HCPCS: 74176; 76705; 80048; 80076; 81001; 83690; 85025; 96374; 96375; 99284; J1885; J2405

== ENCOUNTER → 2025-01-07 | Outpatient (CLI) | payer OTHER ==
[~2025-01-07] MED LIST changes: -AMBI5TAB PO; +CARI-555 PO; -CARI1TAB7 PO; -FLOM0.4C39 PO; +LEVS0.124 SL; +TAMS-18 PO; +ZOLP-532 PO
== END ==
LOC: M RAD 13:09
PROVIDERS: ATTEND Physician Assistant
DX: D44.0 Neoplasm of uncertain behavior of thyroid gland (principal)

== ENCOUNTER → 2025-03-12 | Outpatient (CLI) | payer OTHER | LOC: M WHC 10:25 | PROVIDERS: ATTEND Physician Assistant | DX: N63.10 Unspecified lump in the right breast, unspecified quadrant (principal) | CPT/HCPCS: 76642; 77066; G0279 ==